=== PATIENT | female | born 1990 | race Caucasian/White ===

== ENCOUNTER → 2021-01-13 10:22 | Outpatient (BNV) | payer MEDICAID, SELFPAY | PROVIDERS: PCP Nurse Practitioner Family; Visit Provider Internal Medicine Medical Oncology | DX: D69.3 Immune thrombocytopenic purpura (principal) | CPT/HCPCS: 99213 ==

== ENCOUNTER → 2021-03-31 13:52 | Outpatient (BNVA) | payer MEDICAID, SELFPAY | PROVIDERS: Visit Provider Advanced Practice Midwife ==

== ENCOUNTER → 2021-04-16 11:27 | Outpatient (BNVA) | payer MEDICAID, SELFPAY | PROVIDERS: Visit Provider Advanced Practice Midwife | DX: Z01.419 Encounter for gynecological examination (general) (routine) without abnormal findings (principal); Z30.09 Encounter for other general counseling and advice on contraception; G43.909 Migraine, unspecified, not intractable, without status migrainosus; D69.3 Immune thrombocytopenic purpura | CPT/HCPCS: 81025 ==

== ENCOUNTER → 2021-10-23 08:54 | Outpatient (BNVA) | payer MEDICAID, SELFPAY | PROVIDERS: Visit Provider Advanced Practice Midwife | DX: Z30.09 Encounter for other general counseling and advice on contraception (principal) | CPT/HCPCS: 81025; 99212 ==

== ENCOUNTER → 2022-01-05 13:08 | Outpatient (BNVA) | payer MEDICAID, SELFPAY | PROVIDERS: Visit Provider Advanced Practice Midwife ==

== ENCOUNTER → 2022-02-09 11:41 | Outpatient (BNVA) | payer MEDICAID, SELFPAY | PROVIDERS: Visit Provider Advanced Practice Midwife | DX: N92.6 Irregular menstruation, unspecified (principal); A04.8 Other specified bacterial intestinal infections; D69.3 Immune thrombocytopenic purpura | CPT/HCPCS: 81025; 99212 ==

== ENCOUNTER 2022-10-27 13:38 | Emergency (ER) | payer MEDICAID, SELFPAY ==
--- NOTE | ~2022-10-27 | US_ITS ---
EXAMINATION: US PELVIS CLINICAL INFORMATION: Pelvic pain. Rule out torsion. Findings suspicious for left-sided pelvic congestion syndrome on CT abdomen pelvis 10/27/2022. Right lower quadrant pain. COMPARISON: Degenerative and pelvis 10/27/2022. Pelvic ultrasound 10/15/2014. TECHNIQUE: Ultrasound of the pelvis is performed using both transabdominal and transvaginal transducers along with Doppler. Transvaginal imaging is performed due to inadequate visualization transabdominally. FINDINGS: Uterus: The uterus measures 8.8 cm x 4.8 cm x 4.1 and is anteverted and configuration. The endometrial echo complex measures 6 mm in width. No endometrial cavity fluid collections noted. The right ovary measures 2.7 cm x 1.3 cm x 2.3 cm for an estimated volume of 4.2 cm. Several scattered physiologic subcentimeter anechoic cysts are noted within the right ovary. A 4 mm rounded hyperechoic focus is present within the right ovary which may represent a cyst with a small quantity of hemorrhage. Normal low resistive arterial and venous spectral waveforms are noted within the right ovary. A 3.2 cm x 1.9 cm x 2.6 cm unilocular anechoic cyst is present adjacent to the right ovary. The left ovary measures 1.8 cm x 2.8 cm x 2.2 cm for an estimate a volume of 5.8 cm. Normal low resistive arterial and venous waveforms are noted in the left ovary. Single 1.5 cm x 1.7 cm x 1.3 cm rounded anechoic benign-appearing simple cyst is noted within the left ovary. No free intraperitoneal fluid collections noted. Color Doppler interrogation demonstrates multiple ectatic vessels in the left adnexal region corresponding to findings noted on the comparison CT. Normal color appearance of the right ovary. Normal color sonographic appearance of the left ovary. US/US pelvic and transvaginal IMPRESSION: *No evidence of ovarian torsion. *Multiple prominent ectatic vessels in the left adnexal region which could correlate with pelvic congestion syndrome as also suggested on the comparison CT of 10/27/2022. *Single 4 mm hyperechoic focus within the right ovary suspicious for a small hemorrhagic cyst. *Benign-appearing 3.2 cm right paraovarian cyst.
--- NOTE | ~2022-10-27 | CT_ITS ---
EXAMINATION: CT ABDOMEN AND PELVIS WITH CONTRAST CLINICAL INFORMATION: Right lower quadrant abdominal pain COMPARISON: None TECHNIQUE: Multidetector volumetric images were obtained from the superior aspect of the liver through the pubic symphysis following administration 85 mL of Omnipaque 350 intravenous contrast. Sagittal and coronal reformatted images were obtained on the technologist's workstation. Oral contrast: No This CT examination was performed using dose optimization techniques as appropriate, variously including the following: *Automated exposure control *Adjustment of mA and/or kV according to patient size (this includes techniques or standardized protocols for targeted exams where dose is matched to indication/reason for exam; i.e. extremities or head) *Use of iterative reconstruction technique DLP: 488 mGy-cm FINDINGS: LUNG BASES: The visualized lung bases are unremarkable. LIVER, GALLBLADDER, AND BILIARY TREE: The liver is normal in size, shape, and attenuation. No focal hepatic lesion or biliary ductal dilatation is present. The gallbladder is unremarkable with no evidence of radiopaque gallstones, gallbladder wall thickening, or obvious pericholecystic inflammatory changes. PANCREAS: Unremarkable. SPLEEN: Unremarkable. ADRENAL GLANDS: Unremarkable. KIDNEYS AND URETERS: The kidneys are normal in size, shape, and attenuation. No hydronephrosis, hydroureter, or calculi seen. No perinephric stranding. BLADDER: Unremarkable. GASTROINTESTINAL TRACT: The small and large bowel are unremarkable. The appendix is unremarkable. ABDOMINAL WALL: No significant hernia is appreciated. LYMPH NODES: Normal. VASCULAR: Prominent pelvic vessels and left ovarian vein which may be an indicator of pelvic congestion syndrome. PELVIC VISCERA: Left corpus luteum cyst. OSSEOUS STRUCTURES: Unremarkable. CT/CT abdomen pelvis w IV con IMPRESSION: 1. No focal inflammatory process or obstruction. Normal appendix. 2. Prominent pelvic vessels and left ovarian vein which may be an indicator of pelvic congestion syndrome.
[2022-10-27 15:29] VITALS: BP 118/83; PULSE 82; RESP 16; TEMP 36.7; O2SAT 99; BMI 28.7
--- NOTE | 2022-10-27 15:33 | ED_ITS ---
HPI - Abdominal Pain General Chief Complaint: Abdominal Pain Stated Complaint: R Side Pain Cough Related Data Home Medications Medication Instructions Recorded Confirmed acetaminophen 650 mg tablet 650 mg PO Q6H PRN Headache 01/13/21 05/13/22 diphenhydramine HCl 25 mg tablet 25 mg PO BEDTIME PRN Allergy 01/13/21 05/13/22 (Benadryl Allergy) Symptoms cholecalciferol (vitamin D3) 10 10 mcg PO DAILY 04/16/21 05/13/22 mcg (400 unit) capsule Previous Rx's Medication Instructions Recorded norethindrone (contraceptive) 0.35 0.35 mg PO DAILY #84 tabs 05/13/22 mg tablet vitamin with calcium 1 tab PO daily 30 days #30 tabs 09/13/22 no.72-iron 27 mg-folic acid 1 mg tablet ( Vitamins Plus Low Iron) Allergies Allergy/AdvReac Type Severity Reaction Status Date / Time pollen extracts [POLLEN] Allergy Mild UNKNOWN Verified 10/27/22 15:29 pollen Allergy Unknown unknown Uncoded 05/13/22 13:41 [facility] Past Medical History Medical History Anxiety Bipolar disorder Depression Migraine with aura Seasonal allergies Thrombocytopenia Family History Family History Sister Diabetes Asthma Mother Hypertension Hx of stroke associated with blood clotting tendency Father Hx of cancer of lung History of throat cancer Social History Social History Household Members: Spouse and Children Housing: Apartment Are you a primary nurse wound care to a significant other at home: No Do you presently have visiting nurse or other home services: No Alcohol intake: former Patient Tobacco Use Status: Never used Tobacco service: No Current occupational status: unemployed Gender identity: Female Physical Exam ED Vital Signs: Vital Signs - 24 hr 10/27/22 15:29 Temperature 98.0 F Pulse Rate 82 Respiratory Rate 16 Blood Pressure 118/83 Pulse Oximetry 99 Oxygen Delivery Method Room Air BMI result Body Mass Index 28.7 Course Course Course Narrative: RME- Patient is a 32-year-old female presents today with having generalized malaise weakness nausea vomiting diarrhea ongoing for 3 days. Coughing feeling weak diarrhea headaches nobody sick at home. Patient is vaccinated for COVID. Discharge Plan Discharge Prescriptions: No Action Vitamin Plus Low Iron 27 mg iron- 1 mg tablet 1 tab PO daily 30 Days Qty: 30 11RF acetaminophen 650 mg Tablet 650 mg PO Q6H PRN (Reason: Headache) diphenhydramine HCl [Benadryl Allergy] 25 mg Tablet 25 mg PO BEDTIME PRN (Reason: Allergy Symptoms) cholecalciferol (vitamin D3) 10 mcg (400 unit) capsule 10 mcg PO DAILY norethindrone (contraceptive) 0.35 mg tablet 0.35 mg PO DAILY Qty: 84 4RF
[2022-10-27 15:57] LABS: MANUAL DIFF FLAG NO
[2022-10-27 16:00] LABS: Basophils Percent Auto 0.3 % (0-2); Eosinophils Absolute Auto 0.2 X10*3/uL (0.0-0.4); Eosinophils Percent Auto 2.7 % (0-4); Hematocrit 40.6 % (37.0-47.0); Hemoglobin 14.1 g/dl (12.0-16.0); Imm Gran Abs Auto 0.01 X10*3/uL (0.00-0.03); Imm Gran Pct Auto 0.2 % (0.0-0.4); Lymphocytes Absolute Auto 1.6 X10*3/uL (1.2-4.9); Lymphocytes Percent Auto 24.6 % (20-40); Mean Corpuscular HGB Conc 34.7 g/dl (31.0-35.0); Mean Corpuscular Volume 86.4 fL (80.0-98.0); Mean Platelet Volume 11.6 fL (9.4-12.3); Monocytes Absolute Auto 0.6 X10*3/uL (0.1-1.2); Monocytes Percent Auto 8.5 % (2-11); Neutrophils Absolute Auto 4.2 x10*3/uL (2.0-8.3); Neutrophils Percent Auto 63.7 % (45-73); Platelet Count 149 X10*3/uL (160-400); Red Cell Distribution Width 11.7 % (11.0-16.0); White Blood Count 6.6 X10*3/uL (4.8-10.8)
[2022-10-27 16:16] LABS: Alanine Aminotransferase 17 U/L (0-31); Albumin Level 4.2 g/dL (3.5-5.0); Alkaline Phosphatase 88 U/L (39-117); Anion Gap 10 (12-20); Aspartate Amino Transferase 18 U/L (5-31); Bilirubin Direct 0.4 mg/dL (0.0-0.5); Bilirubin Total 1.2 mg/dL (0.0-1.0); Blood Urea Nitrogen 6 mg/dL (9-16); Calcium 8.7 mg/dL (8.4-10.2); Carbon Dioxide 26 mmol/L (22-29); Chloride 107 mmol/L (96-108); Estimated Glomerular Filt Rate > 60; Glucose Random 84 mg/dL (60-115); Lipase 18 U/L (8-78); Potassium 3.9 mmol/L (3.3-5.1); Sodium 139 mmol/L (135-145); Total Protein 6.5 g/dL (6.5-8.0)
[2022-10-27 16:29] LABS: HCG Quantitative < 2 mIU/mL
[2022-10-27 18:44] LABS: Appearance Urine Clear; Color Urine Yellow; Glucose Urine UA Negative (Negative); Leukocyte Esterase Urine Trace (Negative); Nitrite Urine Negative (Negative); PH 6.5 (5.0-9.0); Specific Gravity - Urine 1.015 (1.005-1.025); UMIC TRIGGER UACC YES; Urine Blood Negative (Negative); Urine Ketones Trace mg/dL (Negative); Urine Protein Negative (Neg-Trace)
[2022-10-27 18:47] LABS: Bacteria Urine None Seen (None Seen); Hyaline Casts Urine 0-2 /LPF (0-2); Squamous Epithelial Cell Urine 0-2 /HPF (0-2); WBC Urine 0-5 /HPF (0-5)
[2022-10-27 19:27] LABS: Influenza A PCR NEGATIVE (Negative); Influenza B PCR NEGATIVE (Negative); Resp Syncy Virus RNA Qual PCR NEGATIVE (Negative); SARS COV2 PCR INHOUSE NEGATIVE (Negative)
[2022-10-27] MEDS: 0.9 % Sodium Chloride 1,000 ML 999 ML IV (21:28)
[2022-10-27 21:31] VITALS: BP 130/79; PULSE 90; RESP 18; TEMP 37.1; O2SAT 99
--- NOTE | 2022-10-27 21:35 | ED.ABDPAIN ---
HPI - Abdominal Pain General Chief Complaint: Abdominal Pain Stated Complaint: R Side Pain Cough Time Seen by Provider: 10/27/22 21:23 Source: patient Mode of arrival: ambulatory Limitations: no limitations History of Present Illness HPI narrative: 32-year-old female came in for evaluation of abdominal pain. Patient is complaining of right-sided abdominal pain started since this morning as a sharp pain localized to the right lower quadrant area described as intermittent moderate in severity 5/10 comes and goes, pain is not radiating, nothing aggravated pain, nothing relieves the pain, no associated dysuria or frequency urination. Patient started yesterday with coughing she might have pulled a muscle. No past medical or surgical abdominal history. Normal bowel movement, no recent loss of weight, no dysuria, no frequency urination, no hematuria, no history of kidney stones. Related Data Home Medications Medication Instructions Recorded Confirmed acetaminophen 650 mg tablet 650 mg PO Q6H PRN Headache 01/13/21 05/13/22 diphenhydramine HCl 25 mg tablet 25 mg PO BEDTIME PRN Allergy 01/13/21 05/13/22 (Benadryl Allergy) Symptoms cholecalciferol (vitamin D3) 10 10 mcg PO DAILY 04/16/21 05/13/22 mcg (400 unit) capsule Previous Rx's Medication Instructions Recorded norethindrone (contraceptive) 0.35 0.35 mg PO DAILY #84 tabs 05/13/22 mg tablet vitamin with calcium 1 tab PO daily 30 days #30 tabs 09/13/22 no.72-iron 27 mg-folic acid 1 mg tablet ( Vitamins Plus Low Iron) Allergies Allergy/AdvReac Type Severity Reaction Status Date / Time pollen extracts [POLLEN] Allergy Mild UNKNOWN Verified 10/27/22 15:29 pollen Allergy Unknown unknown Uncoded 05/13/22 13:41 Review of Systems Review of Systems All other systems are reviewed and are negative Constitutional: Reports as per HPI and Reports no additional constitutional complaints Eyes: Reports as per HPI and Reports no additional eye complaints Reports system reviewed and no additional complaints, except as documented Cardiovascular: Reports as per HPI and Reports no additional cardiovascular complaints Respiratory: Reports as per HPI and Reports no additional respiratory complaints Gastrointestinal: Reports as per HPI and Reports no additional gastrointestinal complaints Genitourinary: Reports no additional female genitourinary complaints Musculoskeletal: Reports no additional musculoskeletal complaints Skin/Breast: Reports system reviewed and no additional complaints, except as docu Psychiatric: Reports no additional psychiatric complaints Endocrine: Reports no additional endocrine complaints Hematologic/Lymphatic: Reports no additional hematologic/lymphatic complaints Allergic/Immunologic: Reports no additional allergic/immunologic complaints Reports system reviewed and no additional complaints, except as documented and Reports Abnormal speech present [facility] Past Medical History Medical History Anxiety Bipolar disorder Depression Migraine with aura Seasonal allergies Thrombocytopenia Family History Family History Sister Diabetes Asthma Mother Hypertension Hx of stroke associated with blood clotting tendency Father Hx of cancer of lung History of throat cancer Social History Social History Household Members: Spouse and Children Housing: Apartment Are you a primary career services director to a significant other at home: No Do you presently have visiting nurse or other home services: No Alcohol intake: former Patient Tobacco Use Status: Never used Tobacco Advance Directives: No Advance Directives Information Provided: Yes service: No Current occupational status: unemployed Gender identity: Female Physical Exam ED Vital Signs: Vital Signs - 24 hr 10/27/22 15:29 10/27/22 21:31 10/27/22 22:00 Temperature 98.0 F 98.8 F 98.4 F Pulse Rate 82 90 81 Respiratory Rate 16 18 16 Blood Pressure 118/83 130/79 120/70 Pulse Oximetry 99 99 100 Oxygen Delivery Method Room Air Room Air Room Air BMI result Body Mass Index 28.7 Vital signs have been reviewed as appeared to be correct. Blood pressure normal. Heart rate normal. Respiration rate normal. Temperature normal. Oxygen saturation normal. Appearance: Alert. Oriented X3. No acute distress. Head: Normal external exam. Normocephalic. Atraumatic. No Henderson signs noted. No raccoon eyes noted Eyes: PERRLA. EOMI. Conjunctiva and sclera normal. Eyelids normal. ENT: TM's Normal. Pharynx normal. Uvula midline. Moist mucous membranes. No trismus noted. No drooling noted. No muffled voice noted. Neck: Normal inspection. Neck supple. FROM. No adenopathy. Thyroid Normal. No meningeal signs. No neck mass noted. CVS: Normal heart rate and rhythm. Heart sound normal. No murmurs noted. Pulses normal throughout. Respiratory: No respiratory distress. Painless inspiration. Breath sounds normal. No wheezes/rales/rhonchi noted. Chest nontender. No accessory muscle usage noted or decreased air movement noted. Abdomen: Soft and nontender. Bowel sounds normal in all 4 quadrants. No distention noted. No organomegaly noted. No visible injury noted. Pelvic exam: Deferred for the ultrasound. Back: No CVA tenderness. Full range of motion noted. Skin: Skin warm and dry. Normal skin color. Normal skin turgor. No rashes/lesions/lacerations noted. Extremities: No lower extremity edema. Extremities exhibit normal range of motion. Extremities nontender. Neuro: Oriented X 3. Cranial nerve exam: II-XII are grossly intact No motor deficit. No sensory deficit. Reflexes normal. Course Course Course Narrative: 32-year-old female presented with right lower abdominal pain, otherwise patient is asymptomatic, physical exam and CT/ultrasound revealed normal appearing appendix with normal WBCs count making appendicitis is unfavorable, ultrasound is showing nonspecific left side pelvic congestion patient has no left abdominal or pelvic pain, the ultrasound also revealed 4 mm small hemorrhagic cyst. My impression patient has been having right lower abdominal pain probably secondary to coughing and pulled muscle however will have the patient follow-up with Dr. Isaacs. Patient was instructed to take Tylenol for pain and wrist for 2 days and return if worsening of her symptoms. Medical Decision Making Medical Decision Making Differential Diagnoses: Differential diagnosis (Right lower abdominal muscle pain/acute appendicitis/ovarian cyst/ovarian torsion.) Lab Attestation: I reviewed the patient's lab results. Discussion of test interpretation with radiology: Discussion of test interpretation with radiology Medications Administered Discontinued Medications Generic Name Dose Route Start Last Admin Trade Name Freq PRN Reason Stop Dose Admin Sodium Chloride 1,000 mls @ 999 mls/hr 10/27/22 15:45 10/27/22 23:45 Ns IV 10/27/22 16:45 Infused .Q1H1M SAM Infusion Iohexol 100 ml 10/27/22 21:48 10/27/22 21:49 Iohexol 350 Mg/Ml 100 Ml Infus..Btl IV 10/27/22 21:49 85 ml ONCE ONE Administration Discharge Plan Discharge Clinical Impression: Abdominal pain, Pelvic congestion syndrome, Ovarian cyst Patient Disposition: Home, Self-Care Instructions: Ovarian Cyst (ED) Additional Instructions: Take ibuprofen 200 mg tablets of [id number] medication every 6 hours if needed for pain. Prescriptions: No Action Vitamin Plus Low Iron 27 mg iron- 1 mg tablet 1 tab PO daily 30 Days Qty: 30 11RF acetaminophen 650 mg Tablet 650 mg PO Q6H PRN (Reason: Headache) diphenhydramine HCl [Benadryl Allergy] 25 mg Tablet 25 mg PO BEDTIME PRN (Reason: Allergy Symptoms) cholecalciferol (vitamin D3) 10 mcg (400 unit) capsule 10 mcg PO DAILY norethindrone (contraceptive) 0.35 mg tablet 0.35 mg PO DAILY Qty: 84 4RF Referrals: [facility] [Primary Care Provider] - Deric Isaacs MD [Physician] - Stand Alone Forms: Work/School Release
[2022-10-27] MEDS: iohexoL 350 MG/ML 100 ML INFUS..BTL IV (21:49)
[2022-10-27 21:59] LABS: UPreg QC Valid YES; Urine Pregnancy NEGATIVE (NEGATIVE)
[2022-10-27 22:00] VITALS: BP 120/70; PULSE 81; RESP 16; TEMP 36.9; O2SAT 100
--- NOTE | 2022-10-27 23:45 | PC.NURSE ---
pt reporting to this rn headache at this time. requesting tylenol. Dr Chino made aware of this request. awaiting orders at this time
[2022-10-28 00:58] VITALS: BP 115/75; PULSE 79; RESP 16; TEMP 36.5; O2SAT 99
[2022-10-28] MEDS: Acetaminophen 325 MG TABLET 650 MG PO (01:12)
== END 2022-10-28 01:18 | disposition home or self-care (01) ==
PROVIDERS: Emergency Medicine Emergency Medical Services; Emergency Provider Emergency Medicine
DX: N94.89 Other specified conditions associated with female genital organs and menstrual cycle (principal); N83.209 Unspecified ovarian cyst, unspecified side; R10.33 Periumbilical pain; R05.9 Cough, unspecified; Z79.899 Other long term (current) drug therapy; Z20.822 Contact with and (suspected) exposure to COVID-19
CPT/HCPCS: 0241U; 36415; 74177; 76830; 76856; 80048; 80076; 81001; 81025; 83690; 84702; 85025; 93975; 96360; 96361; 99284; 99285; Q9967

== ENCOUNTER 2022-11-03 08:58 | Outpatient (REF) | payer MEDICAID, SELFPAY | END 2022-11-03 08:59 | disposition home or self-care (01) | LOC: HO.LNP 08:58 | PROVIDERS: Visit Provider Obstetrics & Gynecology | DX: Q50.5 Embryonic cyst of broad ligament (principal); N94.89 Other specified conditions associated with female genital organs and menstrual cycle; R31.29 Other microscopic hematuria; R10.9 Unspecified abdominal pain | CPT/HCPCS: 87086; 99212 ==

== ENCOUNTER → 2022-11-23 12:26 | Outpatient (BNVA) | payer MEDICAID, SELFPAY | PROVIDERS: Visit Provider Obstetrics & Gynecology | DX: Z13.89 Encounter for screening for other disorder (principal) ==

== ENCOUNTER 2022-12-01 16:54 | Outpatient (RCR) | payer MEDICAID, SELFPAY | END 2022-12-21 14:10 | disposition home or self-care (01) | LOC: HO.PT 16:54 | PROVIDERS: PCP Registered Nurse; Visit Provider Registered Nurse | DX: M54.50 Low back pain, unspecified (principal) | CPT/HCPCS: 97110; 97161 ==

== ENCOUNTER 2023-05-06 14:28 | Outpatient (REF) | payer MEDICAID, SELFPAY ==
--- NOTE | ~2023-05-06 | US_ITS ---
EXAMINATION: US OBSTETRICAL ULTRASOUND CLINICAL INFORMATION: Check size and dates. Unsure LMP. COMPARISON: None available. LMP: Unknown. Gestational age by maternal dates is . Estimated date of delivery by maternal dates is . TECHNIQUE: Transabdominal and transvaginal first trimester OB ultrasound FINDINGS: There is a single intrauterine gestational sac with visible yolk sac, embryo/fetus, and cardiac activity. There is no significant subchorionic hemorrhage or hematoma. HR: 96 beats per minute. CRL (crown rump length): 0.29 cm (6 weeks 0 days +/- 4 days). VANESSA (estimated date of delivery): 12/30/2023 +/- 4 days. MATERNAL ADNEXA: The right maternal ovary measures 2.6 x 2.2 x 2 cm. There is a 1.8 x 1.6 x 1.6 cm complex right ovarian cyst probably representing a corpus luteum. There is a 3.4 x 2.1 x 2.3 cm exophytic simple right adnexal or paraovarian cyst. The left maternal ovary measures 2.3 x 1.3 x 1.3 cm. No maternal pelvic ascites. US/US OB <= 14 weeks fetus IMPRESSION: 1. Single intrauterine gestation with ultrasound gestational age of 6 weeks 0 days +/- 4 days. 2. Estimated date of delivery is 12/30/2023 +/- 4 days. 3. 3.4 x 2.1 x 2.3 cm right adnexal or paraovarian cyst.
== END 2023-05-06 14:29 | disposition home or self-care (01) ==
LOC: HO.US 14:28
PROVIDERS: PCP Registered Nurse; Visit Provider Advanced Practice Midwife
DX: Z34.91 Encounter for supervision of normal pregnancy, unspecified, first trimester (principal); Z3A.01 Less than 8 weeks gestation of pregnancy
CPT/HCPCS: 76801

== ENCOUNTER 2024-02-03 14:22 | Outpatient (REF) | payer MEDICAID, SELFPAY ==
[2024-02-03 16:00] LABS: Appearance Urine Clear; Color Urine Yellow; Glucose Urine UA Negative (Negative); Leukocyte Esterase Urine Small (1+) (Negative); Nitrite Urine Negative (Negative); Specific Gravity - Urine 1.025 (1.005-1.025); UMIC TRIGGER UA YES; Urine Blood Trace (Negative); Urine Ketones Negative (Negative); Urine Protein Negative (Neg-Trace)
[2024-02-03 16:04] LABS: Bacteria Urine Trace (None Seen); Hyaline Casts Urine 0-2 /LPF (0-2); RBC Urine 0-2 /HPF (0-2)
== END 2024-02-03 14:23 | disposition home or self-care (01) ==
LOC: HO.HHCL 14:22
PROVIDERS: Visit Provider Student in an Organized Health Care Education/Training Program
DX: N39.0 Urinary tract infection, site not specified (principal); R31.9 Hematuria, unspecified
CPT/HCPCS: 81001

== ENCOUNTER 2024-02-16 11:58 | Outpatient (REF) | payer MEDICAID, SELFPAY ==
[2024-02-16 13:25] LABS: Hematocrit 38.8 % (37.0-47.0); Hemoglobin 13.6 g/dl (12.0-16.0); Mean Corpuscular HGB Conc 35.1 g/dl (31.0-35.0); Mean Corpuscular Hemoglobin 31.4 pg (27.0-33.0); Mean Corpuscular Volume 89.6 fL (80.0-98.0); Mean Platelet Volume 12.8 fL (9.4-12.3); Platelet Count 150 X10*3/uL (160-400); Red Blood Count 4.33 X10*6/uL (4.20-5.50); Red Cell Distribution Width 11.5 % (11.0-16.0); White Blood Count 7.8 X10*3/uL (4.8-10.8)
[2024-02-16 13:59] LABS: Estimated Average Glucose 94 mg/dL; Hemoglobin A1c % 4.9 % (<6.0)
[2024-02-16 14:02] LABS: Alanine Aminotransferase 11 U/L (0-31); Alkaline Phosphatase 72 U/L (39-117); Anion Gap 13 (12-20); Aspartate Amino Transferase 16 U/L (5-31); Bilirubin Direct 0.5 mg/dL (0.0-0.5); Bilirubin Total 1.4 mg/dL (0.0-1.0); Blood Urea Nitrogen 12 mg/dL (9-16); Calcium 9.1 mg/dL (8.4-10.2); Carbon Dioxide 25 mmol/L (22-29); Chloride 107 mmol/L (96-108); Cholesterol 156 mg/dL (<200); Estimated Glomerular Filt Rate > 60; Glucose Random 79 mg/dL (60-115); HDL Cholesterol 45 mg/dL (>40); LDL Cholesterol Calculated 81 mg/dL (<100); Potassium 3.8 mmol/L (3.3-5.1); Sodium 141 mmol/L (135-145); Total Protein 6.7 g/dL (6.5-8.0); Triglycerides 154 mg/dL (<150)
[2024-02-16 14:08] LABS: Free T4 (Free Thyroxine) 0.91 ng/dL (0.71-1.85); Thyroid Stimulating Hormone 1.91 uIU/mL (0.32-4.0); Vitamin D 25-OH Total 38.2 ng/mL (>30)
[2024-02-16 15:41] LABS: CT PCR NOT DETECTED (Not Detect.); NG PCR NOT DETECTED (Not Detect.)
[2024-02-17 04:13] LABS: Hepatitis A Antibody IgG Nonreactive (Nonreactive); ~Hepatitis A Antibody IgG 0.34 S/CO (0.00-0.99)
[2024-02-17 04:27] LABS: HBS Num1 24.04 mIU/mL (0-7.99); HBsAGNum1 0.37 S/CO (0.00-0.99); HIV AB/AG Nonreactive (Nonreactive); HIV Num 1 0.31 S/CO (0.00-0.99); Hepatitis B Surface Antigen Negative (Negative); ~HepC Num1 0.13 S/CO (0.00-0.79); ~Hepatitis B Surface Antibody REACTIVE (Nonreactive); ~Hepatitis C Antibody Nonreactive (Nonreactive)
[2024-02-20 13:14] LABS: RPR Rapid Plasma Reagin NON-REACTIVE (NON-REACTIVE)
== END 2024-02-16 11:59 | disposition home or self-care (01) ==
LOC: HO.HHCL 11:58
PROVIDERS: Visit Provider Family Medicine
DX: Z00.00 Encounter for general adult medical examination without abnormal findings (principal); Z11.4 Encounter for screening for human immunodeficiency virus [HIV]; D69.6 Thrombocytopenia, unspecified
CPT/HCPCS: 0353U; 36415; 80048; 80061; 80076; 82306; 83036; 84439; 84443; 85027; 86592; 86706; 86708; 86803; 87340; 87389

== ENCOUNTER 2024-09-05 19:18 | Emergency (ER) | payer MEDICAID, SELFPAY ==
--- NOTE | ~2024-09-05 | US_ITS ---
EXAMINATION: US TRIPLEX LOWER EXTREMITY, BILATERAL CLINICAL INFORMATION: Bilateral lower extremity pain. COMPARISON: None available. TECHNIQUE: Color-flow triplex imaging with spectral analysis and compression Doppler were performed on the bilateral lower extremities. FINDINGS: Respiratory variation, normal compression and augmented flow are noted throughout the bilateral lower extremities. The visualized common femoral vein, superficial femoral vein, profunda femoral vein, popliteal vein and midcalf peroneal and posterior tibial venous segments show no evidence of deep venous thrombosis bilaterally. There is no Tyler's cyst. US/US venous duplex LE BI IMPRESSION: No evidence of deep venous thrombosis involving the bilateral lower extremities. Electronically signed by: Santhosh Portillo MD 09/05/2024 10:40 PM EDT
[2024-09-05 19:28] VITALS: BP 124/83; PULSE 90; RESP 19; TEMP 36.6; O2SAT 98; BMI 29.1
--- NOTE | 2024-09-05 19:31 | ED.GENADULT ---
HPI - General Adult General Chief complaint: Extremity Injury, Lower Stated complaint: Bilat leg pain Time Seen by Provider: 09/05/24 23:28 History of Present Illness ED Provider: Mehreen JUNG narrative: The patient is a 34-year-old woman who says that she has had intermittent pains in her legs over the last 3 weeks. She feels these pains primarily in her thighs and in the region of her knees. The pains are intermittent and are not clearly related to any particular activities. There is no associated back pain. No associated bowel or bladder symptoms. No associated weakness in the legs or feet. The patient has a history of thrombocytopenia. 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 She contacted Dr. Hurt recently who was concerned that the patient's mother has a history of DVTs and advised the patient to come to the emergency room for evaluation. No fever, sweats, or chills. No injuries. Related Data Home Medications ?Medication ?Instructions ?Recorded ?Confirmed acetaminophen 650 mg tablet 650 mg PO Q6H PRN Headache 01/13/21 03/15/24 Allergies Allergy/AdvReac Type Severity Reaction Status Date / Time pollen extracts [POLLEN] Allergy Mild UNKNOWN Verified 09/05/24 19:31 Review of Systems Review of Systems: Yes all other systems are reviewed and are negative PMF Past Medical History Medical History Anxiety Bipolar disorder Depression Migraine with aura Seasonal allergies Thrombocytopenia Family History Family History Sister Diabetes Asthma Mother Hypertension Hx of stroke associated with blood clotting tendency Father Hx of cancer of lung History of throat cancer Social History Social History Household Members: Spouse and Children Housing: Apartment Are you a primary associate director career services to a significant other at home: No Do you presently have visiting nurse or other home services: No Alcohol intake: former Patient Tobacco Use Status: Never used Tobacco Smoked in Last 30 Days: No Use of substances other than those prescribed or required for medical reasons: No Advance Directives: No Advance Directives Information Provided: No service: No Current occupational status: unemployed Gender identity: Female Physical Exam ED Vital Signs: Vital Signs - 24 hr 09/05/24 19:28 09/05/24 22:03 09/05/24 23:51 Temperature 98 F 98.6 F 98.6 F Pulse Rate 90 73 73 Respiratory Rate 19 16 16 Blood Pressure 124/83 130/77 130/77 Pulse Oximetry 98 98 98 Oxygen Delivery Method Room Air Room Air Room Air BMI result Body Mass Index 29.1 Const Other: The patient has the appearance of an ordinarily healthy 34-year-old. She does not appear in distress or ill. HENMT Head: Yes normal to inspection Face and sinus: Yes normal facial exam Mouth: Normal oral and palatal mucosa present and moist mucous membranes Eyes General: appearance normal, both eyes and all related structures Neck Neck: Yes full ROM Resp Effort & Inspection: normal respiratory effort Auscultation: clear to auscultation bilaterally Cardio Rate: regular rate Rhythm: regular rhythm Heart sounds: S1 normal heart sound present and S2 normal heart sound present GI Other: abdomen is soft and nontender Skin Other: skin is dry and unremarkable Neuro Other: the patient is awake and alert with normal mental status. Cranial nerves are grossly intact. She has normal strength in her legs and moves them easily. She reports some diminished sensation in both feet. She has 2+ reflexes at the knees and ankles. Toes go down bilaterally. She walks easily and normally. Extrem Other: No apparent abnormality to either leg. She seems to have no soft tissue swelling of the thighs or the calves. She seems to move her legs easily and appropriately. No edema. No asymmetry. No erythema. Course Course Course Narrative: This is a Rapid Medical Examination (RME) performed by Brandt You PA-C in triage. Full HPI, ROS, assessment and treatment plan per primary provider in the Main ED. 34 yo female hx of thrombocytopenia here for eval of bilateral posterior knee pain radiating up and down LEs (now L>R). mom w/ history of multiple VTEs and strokes. called dr. hurt who advised she come to ED for lab work and US. no personal hx of VTE. no thinners. Plan: labs, venous duplex Medical Decision Making Medical Decision Making MDM Narrative: The patient is a 34-year-old female who has been having problems with pain in the front of both of her legs that seems to be maximal around the knees. There has been no trauma. She has had no fevers, sweats, chills. She has not had any significant back pain. She has no bowel or bladder complaints. Her physical exam shows brisk reflexes at the knees and ankles, downgoing toes, easy use of the knees and ankles. Normal gait. Overall the patient looks quite well. Bilateral lower extremity ultrasounds are negative. basic labs including a CBC and a comprehensive metabolic panel show a minimally abnormal thrombocytopenia. No other significant result. Overall the patient looks quite well. I do not have a good explanation for this bilaterally anterior leg pain. I do not think this represents any kind of neurological emergency. She looks quite well. I think she may be discharged to follow-up with her regular providers. Lab Data 09/05/24 19:40 09/05/24 19:40 Labs: Lab Results 09/05/24 Range/Units 19:40 WBC 7.9 (4.8-10.8) X10*3/uL RBC 4.83 (4.20-5.50) X10*6/uL Hgb 14.8 (12.0-16.0) g/dl Hct 42.2 (37.0-47.0) % MCV 87.4 (80.0-98.0) fL MCH 30.6 (27.0-33.0) pg MCHC 35.1 H (31.0-35.0) g/dl RDW 11.5 (11.0-16.0) % Plt Count 155 L (160-400) X10*3/uL MPV 12.3 (9.4-12.3) fL Immature Gran % (Auto) 0.3 (0.0-0.4) % Neut % (Auto) 63.9 (45-73) % Lymph % (Auto) 28.0 (20-40) % [place] % (Auto) 6.1 (2-11) % Eos % (Auto) 1.3 (0-4) % Baso % (Auto) 0.4 (0-2) % Lymph # (Auto) 2.2 (1.2-4.9) X10*3/uL [place] # (Auto) 0.5 (0.1-1.2) X10*3/uL Eos # (Auto) 0.1 (0.0-0.4) X10*3/uL Baso # (Auto) 0.0 (0.0-0.2) X10*3/uL Abs Immat Gran (auto) 0.02 (0.00-0.03) X10*3/uL Absolute Neuts (auto) 5.0 (2.0-8.3) x10*3/uL Absolute Nucleated RBC 0.000 (0.0-0.012) X10*3/uL Nucleated RBC % (auto) 0.0 (0.0-0.2) /100WBC PT 12.3 (10.9-12.4) SEC INR 1.1 (0.9-1.1) Sodium 143 (135-145) mmol/L Potassium 3.7 (3.3-5.1) mmol/L Chloride 111 H (96-108) mmol/L Carbon Dioxide 22 (22-29) mmol/L Anion Gap 14 (12-20) BUN 8 L (9-16) mg/dL Creatinine 0.66 (0.5-1.4) mg/dL Estim Creat Clear Calc 107.4 Estimated GFR > 60 Random Glucose 87 (60-115) mg/dL Calcium 9.9 D (8.4-10.2) mg/dL Magnesium 2.0 (1.6-2.6) mg/dL Total Bilirubin 0.6 (0.0-1.0) mg/dL AST 15 (5-31) U/L ALT 13 (0-31) U/L Alkaline Phosphatase 88 (39-117) U/L Total Protein 7.8 (6.5-8.0) g/dL Albumin 4.7 (3.5-5.0) g/dL Discharge Plan Discharge Clinical Impression: Bilateral leg pain Patient Disposition: Home, Self-Care Additional Instructions: Your testing in the emergency room today seems reassuring. There is no sign of a blood clot in your legs. Your other labs are unremarkable. Your physical exam is also reassuring. You may continue to use acetaminophen (Tylenol) as needed for pain. I think that occasionally using ibuprofen would be reasonable as well. Your platelet count is nearly normal today. Please follow up with your regular doctor to discuss these pains further. Return to the emergency room if significantly worse. Prescriptions: No Action acetaminophen 650 mg Tablet 650 mg PO Q6H PRN (Reason: Headache) Referrals: Reva Castillo DO [Physician] - (Bilateral anterior leg pain) Interventions: ED Discharge Assessment Last Done: 09/05/24 23:51 Discharge Date/Time: 09/05/24 23:51 Print Language: Angolan
[2024-09-05 19:43] LABS: MANUAL DIFF FLAG NO
[2024-09-05 19:52] LABS: Basophils Percent Auto 0.4 % (0-2); Eosinophils Absolute Auto 0.1 X10*3/uL (0.0-0.4); Eosinophils Percent Auto 1.3 % (0-4); Hematocrit 42.2 % (37.0-47.0); Hemoglobin 14.8 g/dl (12.0-16.0); Imm Gran Abs Auto 0.02 X10*3/uL (0.00-0.03); Imm Gran Pct Auto 0.3 % (0.0-0.4); Lymphocytes Absolute Auto 2.2 X10*3/uL (1.2-4.9); Mean Corpuscular HGB Conc 35.1 g/dl (31.0-35.0); Mean Corpuscular Hemoglobin 30.6 pg (27.0-33.0); Mean Corpuscular Volume 87.4 fL (80.0-98.0); Mean Platelet Volume 12.3 fL (9.4-12.3); Monocytes Absolute Auto 0.5 X10*3/uL (0.1-1.2); Monocytes Percent Auto 6.1 % (2-11); Neutrophils Percent Auto 63.9 % (45-73); Platelet Count 155 X10*3/uL (160-400); Red Blood Count 4.83 X10*6/uL (4.20-5.50); Red Cell Distribution Width 11.5 % (11.0-16.0); White Blood Count 7.9 X10*3/uL (4.8-10.8)
[2024-09-05 19:59] LABS: INTERNATIONAL NORM RATIO 1.1 (0.9-1.1); Prothrombin Time 12.3 SEC (10.9-12.4)
[2024-09-05 20:11] LABS: Alanine Aminotransferase 13 U/L (0-31); Albumin Level 4.7 g/dL (3.5-5.0); Alkaline Phosphatase 88 U/L (39-117); Anion Gap 14 (12-20); Aspartate Amino Transferase 15 U/L (5-31); Bilirubin Total 0.6 mg/dL (0.0-1.0); Blood Urea Nitrogen 8 mg/dL (9-16); Calcium 9.9 mg/dL (8.4-10.2); Carbon Dioxide 22 mmol/L (22-29); Chloride 111 mmol/L (96-108); Creatinine Clr Calc Pharmacy 107.4; Estimated Glomerular Filt Rate > 60; Glucose Random 87 mg/dL (60-115); Potassium 3.7 mmol/L (3.3-5.1); Sodium 143 mmol/L (135-145); Total Protein 7.8 g/dL (6.5-8.0)
[2024-09-05 22:03] VITALS: BP 130/77; PULSE 73; RESP 16; TEMP 37; O2SAT 98
--- NOTE | 2024-09-05 22:07 | PC.NURSE ---
pt ambulatory with steady gait from wr to ed20 reporting bilat leg pain onset x 3 weeks ago. denies recent travel/injury. hx itp. +pedal pulses no redness/swelling noted. reports 8/10 pain. awaiting eval by ed provider. sig other at bedside. call yañez within reach.
[2024-09-05 23:51] VITALS: BP 130/77; PULSE 73; RESP 16; TEMP 37; O2SAT 98
== END 2024-09-05 23:51 | disposition home or self-care (01) ==
PROVIDERS: Physician Assistant Medical; Emergency Provider Emergency Medicine
DX: M79.605 Pain in left leg (principal); M79.604 Pain in right leg
CPT/HCPCS: 36415; 80053; 83735; 85025; 85610; 93970; 99284

== ENCOUNTER 2024-09-14 16:22 | Outpatient (REF) | payer MEDICAID, SELFPAY | END 2024-09-14 16:23 | disposition home or self-care (01) | LOC: HO.LAB 16:22 | PROVIDERS: PCP Family Medicine; Visit Provider Family Medicine | DX: M79.604 Pain in right leg (principal); M79.605 Pain in left leg | CPT/HCPCS: 72100; 73564 ==

== ENCOUNTER 2024-10-01 16:49 | Emergency (ER) | payer MEDICAID, SELFPAY ==
--- NOTE | ~2024-10-01 | US_ITS ---
EXAMINATION: US TRIPLEX LOWER EXTREMITY, BILATERAL CLINICAL INFORMATION: Pain. COMPARISON: Lower extremities ultrasound 09/05/2024. TECHNIQUE: Color-flow triplex imaging with spectral analysis and compression Doppler were performed on the bilateral lower extremities. FINDINGS: Respiratory variation, normal compression and augmented flow are noted throughout the bilateral lower extremities. The visualized common femoral vein, superficial femoral vein, profunda femoral vein, popliteal vein and midcalf peroneal and posterior tibial venous segments show no evidence of deep venous thrombosis bilaterally. There is no Tyler's cyst. US/US venous duplex LE BI IMPRESSION: No evidence of deep venous thrombosis involving the bilateral lower extremities. Electronically signed by: Kassy Allen MD 10/01/2024 08:37 PM EST
[2024-10-01 17:00] VITALS: BP 103/62; PULSE 80; RESP 18; TEMP 37; O2SAT 98; BMI 25.0
--- NOTE | 2024-10-01 17:01 | ED_ITS ---
HPI - General Adult General Chief complaint: Extremity Injury, Lower Stated complaint: Bilateral Leg pain Source: patient Mode of arrival: ambulatory Limitations: no limitations History of Present Illness ED Provider: Domi Moy PA-C HPI narrative: Patient is a 34 year old assigned female at with a history of chronic ITP, H. pylori, and bilateral lower leg pain presenting to the emergency department today with continued bilateral lower leg pain. Patient states that she has been dealing with bilateral lower leg pain for over a month and her PCP has her scheduled for an EMG soon. Patient denies any dizziness, lightheadedness, abdominal pain, nausea, vomiting, fever, chills, blurry vision, double vision, loss of vision, chest pain, difficulty breathing, shortness of breath, back pain, night sweats, pain with urination, increased urinary frequency, increased urinary urgency, blood in her urine or stool, syncope or a near syncopal episode, recent trauma or falls, bowel incontinence, bladder incontinence, or any other complaints at this time. Onset (ago): month(s) (1) Location: left, right and lower extremity Relieving factors: none Exacerbating factors: none Associated symptoms: denies other symptoms Treatments prior to arrival: none Related Data Home Medications ?Medication ?Instructions ?Recorded ?Confirmed acetaminophen 650 mg tablet 650 mg PO Q6H PRN Headache 01/13/21 09/07/24 Allergies Allergy/AdvReac Type Severity Reaction Status Date / Time pollen extracts [POLLEN] Allergy Mild UNKNOWN Verified 10/01/24 17:02 Review of Systems Constitutional: Constitutional: Reports no additional constitutional complaints, Denies chills, Denies fever(s) and Denies night sweats Eyes: Eyes: Reports no additional eye complaints, Denies blurry vision, Denies change in vision, Denies diplopia, Denies eye discharge, Denies loss of vision and Denies eye pain ENT: Denies dizziness Cardiovascular: Cardiovascular: Reports no additional cardiovascular complaints, Denies chest pain, Denies lightheadedness, Denies Loss of Consciousness and Denies dyspnea Respiratory: Respiratory: Reports no additional respiratory complaints and Denies dyspnea Gastrointestinal: Gastrointestinal: Reports no additional gastrointestinal complaints, Denies abdominal pain, Denies melena, Denies hematochezia, Denies change in bowel habits and Denies change in stool character Genitourinary: Genitourinary: Denies hematuria, Denies urinary frequency, Denies dysuria, Denies urinary incontinence, Denies urinary hesitancy and Denies urinary urgency Musculoskeletal: Musculoskeletal: Reports no additional musculoskeletal complaints, Denies numbness and Denies tingling Comments: bilateral lower extremity pain Neurologic: Denies dizziness, Denies loss of vision, Denies numbness and Denies tingling Psychiatric: Psychiatric: Reports no additional psychiatric complaints Endocrine: Endocrine: Reports no additional endocrine complaints Hematologic/Lymphatic: Hematologic/Lymphatic: Reports no additional hematologic/lymphatic complaints Allergic/Immunologic: Allergic/Immunologic: Reports no additional allergic/immunologic complaints [facility] Past Medical History Attestation statement: The following information was validated with the patient. Source: old records reviewed and nursing notes reviewed Medical History Migraine with aura Bipolar disorder Anxiety Depression Seasonal allergies Thrombocytopenia Family History Family History Sister Diabetes Asthma Mother Hypertension Hx of stroke associated with blood clotting tendency Father Hx of cancer of lung History of throat cancer Social History Social History Household Members: Spouse and Children Housing: Apartment Are you a primary director of career resources to a significant other at home: No Do you presently have visiting nurse or other home services: No Alcohol intake: former Patient Tobacco Use Status: Never used Tobacco Advance Directives: No Advance Directives Information Provided: No Do you have a plan to hurt others: No Plan service: No Current occupational status: unemployed Gender identity: Female Physical Exam ED Vital Signs: BMI result Body Mass Index 25.0 Const General: cooperative, no acute distress, alert and awake Nutritional Appearance: well nourished Orientation/consciousness: patient oriented x3 Limitations: no limitations HENMT Head: Yes normal to inspection and Yes atraumatic Ears: hearing grossly normal bilaterally and external ears normal General nose exam: Normal external nose present, no nasal discharge noted and no epistaxis Face and sinus: Yes normal facial exam, No abrasion and No laceration Mouth: Normal oral and palatal mucosa present, no drooling and no muffled voice Eyes General: appearance normal, both eyes and all related structures Periorbital: periorbital findings normal Eyelids: Yes eyelids normal Conjunctivae: conjunctivae normal Pupils: Equal, round and reactive pupils present EOM: EOMs intact bilaterally Neck Neck: Yes normal visual inspection, Yes full ROM and Yes no lymphadenopathy Chest Chest palpation & inspection: normal inspection of the chest Resp Effort & Inspection: normal respiratory effort and able to speak in complete sentences GI Inspection: Yes normal to inspection Neuro General: patient oriented x3 and moves all extremities Cranial nerves: Yes Equal, round and reactive pupils present Cognition (Neuro): normal cognition Extrem General: Yes normal to inspection, Yes full ROM and Yes capillary refill normal Psych Appearance: grossly normal Mental Status: mental status grossly normal Affect: normal affect Attitude: cooperative Thought process: Normal thought process present Thought content: Normal thought content present Insight: Good insight present (Psych) Course Course Course Narrative: RME performed by Domi Moy PA-C. Patient is a 34 year old assigned female at presenting to the emergency department with bilateral leg pain and right knee lump. Detailed physical exam and review of systems are deferred to the primary montessori teacher. Imaging ordered. Patient placed back in the waiting room pending room availability and results. Medical Decision Making Medical Decision Making MDM Narrative: Patient is a 34 year old assigned female at with a history of chronic ITP, H. pylori, and bilateral lower leg pain presenting to the emergency department today with continued bilateral lower leg pain. Patient's limited physical exam performed in triage was unremarkable. Patient's bilateral lower leg ultrasounds showed no acute process. Patient left the department without completing treatment. Patient left the department before myself or any of the other emergency department clinicians could explain to or review with the patient; physical exam findings, test results, need or lack there of for additional testing, need or lack there of for a procedure to be performed, need or lack there of for hospital admission / transfer, need or lack there of for prescription medication, treatment options, or a treatment plan. Differential Diagnosis Differential Diagnoses: The differential diagnosis associated with the presentation includes DVT Bilateral lower leg pain Neuropathy Admission/Observation Consideration of admission/observation: Escalation of care including admission/observation considered Patient would have been admitted to the hospital had she completed her work up and it had any findings where hospital admission was appropriate, her clinical presentation warranted hospital admission, had myself or any other emergency parts department supervisor had the ability to discuss need or lack there of for hospital admission, and the patient hadn't left the department without completing treatment. Independent Interpretation I performed an independent interpretation of an: Ultrasound Interpretation: My interpretation is in agreement with the radiologist's impression of this imaging study. EXAMINATION: US TRIPLEX LOWER EXTREMITY, BILATERAL CLINICAL INFORMATION: Pain. COMPARISON: Lower extremities ultrasound 09/05/2024. TECHNIQUE: Color-flow triplex imaging with spectral analysis and compression. Doppler were performed on the bilateral lower extremities. FINDINGS: Respiratory variation, normal compression and augmented flow are noted throughout the bilateral lower extremities. The visualized common femoral vein, superficial femoral vein, profunda femoral vein, popliteal vein and midcalf peroneal and posterior tibial venous segments show no evidence of deep venous thrombosis bilaterally. There is no Tyler's cyst. US/US venous duplex LE BI IMPRESSION: No evidence of deep venous thrombosis involving the bilateral lower extremities. Electronically signed by: Kassy Allen MD 10/01/2024 08:37 PM [facility] Dictated By: Kassy Allen Signed By: Electronically signed by Kassy Allen 10/01/242036 Radiology Impression Discussion of test interpretation with radiology: I have reviewed the radiologist's reading. Discharge Plan Discharge Clinical Impression: Bilateral leg pain Patient Disposition: Left W/O Completing Treatment Prescriptions: No Action acetaminophen 650 mg Tablet 650 mg PO Q6H PRN (Reason: Headache) Discharge Date/Time: 10/01/24 22:34
--- NOTE | 2024-10-01 22:30 | PC.NURSE ---
Pt no answer when called for reassessment.
== END 2024-10-01 22:34 | disposition left against medical advice (07) ==
PROVIDERS: Emergency Provider Emergency Medicine; PCP Family Medicine
DX: M79.604 Pain in right leg (principal); M79.605 Pain in left leg; R60.0 Localized edema
CPT/HCPCS: 93970; 99281; 99284

== ENCOUNTER 2024-11-30 14:34 | Outpatient (REF) | payer MEDICAID, SELFPAY ==
--- NOTE | 2024-11-30 14:39 | EMG_ITS ---
Chief complaint: Bilateral leg pain and heaviness, used to have lower back pain Reason for referral: Evaluate for neuropathy Referred by: Dr. Castillo Procedure done: Bilateral lower extremity NCS/EMG Precautions and/or limitations: History of ITP, last platelet count 08/2024 153,000 The limb temperature was monitored continuously and remained between 32-36 degrees C during the performance of the NCS. Nerve Conduction Studies Anti Sensory Summary Table ?Stim Site NR Onset (ms) Norm Onset (ms) Peak (ms) Norm Peak (ms) O-P Amp (?V) Norm O-P Amp Site1 Site2 Delta-0 (ms) Dist (cm) Timothy (m/s) Norm Timothy (m/s) Left Sural Anti Sensory (Lat Mall) Calf ? 2.2 3.3 <4.0 6.1 >5.0 Calf Lat Mall 2.2 14.0 64 Right Sural Anti Sensory (Lat Mall) Calf ? 2.0 3.0 <4.0 6.4 >5.0 Calf Lat Mall 2.0 14.0 70 Motor Summary Table ?Stim Site NR Onset (ms) Norm Onset (ms) O-P Amp (mV) Norm O-P Amp iAmp (mV) Amp (1st) (%) Site1 Site2 Delta-0 (ms) Dist (cm) Timothy (m/s) Norm Timothy (m/s) Right Peroneal Motor (Ext Dig Brev) Ankle ? 3.0 <4.0 4.8 >2.5 5.8 100.0 Ankle Ext Dig Brev 3.0 0.0 B Fib ? 8.0 4.5 5.3 93.8 B Fib Ankle 5.0 29.0 58 >40 Poplt ? 8.8 4.6 5.4 95.8 Poplt B Fib 0.8 4.5 56 >40 Left Tibial Motor (Abd Galvin Brev) Ankle ? 3.0 <5 13.8 >2.5 19.2 100.0 Ankle Abd Galvin Brev 3.0 0.0 Knee ? 9.1 12.9 17.7 93.5 Knee Ankle 6.1 33.5 55 >40 Right Tibial Motor (Abd Galvin Brev) Ankle ? 2.7 <5 21.1 >2.5 30.6 100.0 Ankle Abd Galvin Brev 2.7 0.0 Knee ? 8.9 13.0 17.6 61.6 Knee Ankle 6.2 33.0 53 >40 EMG ?Side Muscle Nerve Root Ins Act Fibs Psw Amp Dur Poly Recrt Int Pat Comment Right AbdHallucis MedPlantar S1-2 Incr 1+ 1+ Nml Nml 0 Nml Complete Right AntTibialis Dp Br Peron L4-5 Incr 1+ 1+ Nml Nml 0 Nml Complete Right PostTibialis Tibial L5, S1 Nml Nml Nml Nml Nml 0 Nml Complete Right MedGastroc Tibial S1-2 Nml Nml Nml Nml Nml 0 Nml Complete Right VastusMed Femoral L2-4 Nml Nml Nml Nml Nml 0 Nml Complete Left AbdHallucis MedPlantar S1-2 Nml Nml Nml Nml Nml 0 Nml Complete Left AntTibialis Dp Br Peron L4-5 Nml Nml Nml Nml Nml 0 Nml Complete Left PostTibialis Tibial L5, S1 Nml Nml Nml Nml Nml 0 Nml Complete Left MedGastroc Tibial S1-2 Nml Nml Nml Nml Nml 0 Nml Complete Left VastusMed Femoral L2-4 Nml Nml Nml Nml Nml 0 Nml Complete Paraspinal EMG ?Side Muscle Nerve Root Ins Act Fibs Psw Comment Right Lumbar Upper Rami Nml Nml Nml Right Lumbar Mid Rami Nml Nml Nml Right Lumbar Lower Rami Nml Nml Nml Left Lumbar Upper Rami Nml Nml Nml Left Lumbar Mid Rami Nml Nml Nml Left Lumbar Lower Rami Nml Nml Nml FINDINGS: All motor and sensory nerves tested showed normal latencies, amplitudes and conduction velocities. Concentric needle EMG was performed in selected muscles of the bilateral lower extremity lumbar paraspinals. Study revealed signs of electric abnormalities as shown in the table above. Right TA and AH showed increased insertional activity, PSWs and fibrillations. No denervation seen on lumbar paraspinals. IMPRESSION: 1. There is no electrodiagnostic evidence for peroneal neuropathy, tibial neuropathy. lumbosacral plexopathy, or peripheral neuropathy. 2. Can not rule out a right L5-S1 radiculopathy. CLINICAL COMMENT: Further clinical correlation recommended. Thank you for your kind referral. Ольга Mcconnell MD, DON Board Certified, [place] [employer] and [employer] (ABPMR) Board Certified, [place] [employer] Electro[employer] (ABEM) CODIN [id number] x 2 MTDD
== END 2024-11-30 14:35 | disposition home or self-care (01) ==
LOC: HO.NEURO 14:34
PROVIDERS: PCP Family Medicine; Visit Provider Family Medicine
DX: M79.604 Pain in right leg (principal); M79.605 Pain in left leg; R20.0 Anesthesia of skin
CPT/HCPCS: 95886; 95909

== ENCOUNTER → 2024-11-30 14:39 | Outpatient (BNV) | payer MEDICAID, SELFPAY | PROVIDERS: PCP Family Medicine; Visit Provider Physical Medicine & Rehabilitation | DX: M79.604 Pain in right leg (principal); M79.605 Pain in left leg | CPT/HCPCS: 95886; 95909 ==

== ENCOUNTER 2025-01-12 12:35 | Emergency (ER) | payer MEDICAID, SELFPAY ==
--- NOTE | ~2025-01-12 | XR_ITS ---
CLINICAL HISTORY: low back pain Radiographs of the lumbar spine, 3 views Comparison: 09/14/24 Findings: There is normal alignment. No fracture. The vertebral body heights are preserved. There is mild multilevel intervertebral disc space narrowing with mild endplate osteophytosis. Mild lower lumbar facet hypertrophy. The soft tissues are normal. Impression: No acute findings. Mild degenerative change. This document has been electronically signed by: Nasrin Chang MD on 01/12/2025 13:47:23
[2025-01-12 12:54] VITALS: BP 114/74; PULSE 82; RESP 16; TEMP 37.1; O2SAT 98; BMI 28.5
--- NOTE | 2025-01-12 13:02 | ED_ITS ---
HPI - General Adult General Chief complaint: Back Pain/Injury Stated complaint: Low back pain Time Seen by Provider: 01/12/25 15:08 Source: patient Mode of arrival: ambulatory Limitations: no limitations History of Present Illness ED Provider: Domi Moy PA-C HPI narrative: Patient is a 34 year old assigned female at with a history of migraines and h.pylori, presenting to the emergency department today with low back pain. Patient states that earlier today she was putting a baby stroller in the truck of the car when she bent over and had low back pain. Patient states that she has had low back issues before but they had gone away for awhile and now this happened. Patient denies any dizziness, lightheadedness, abdominal pain, nausea, vomiting, fever, chills, blurry vision, double vision, loss of vision, chest pain, difficulty breathing, shortness of breath, night sweats, pain with urination, increased urinary frequency, increased urinary urgency, blood in her urine or stool, syncope or a near syncopal episode, bowel incontinence, bladder incontinence, or any other complaints at this time. Relieving factors: none Exacerbating factors: none Associated symptoms: denies other symptoms Treatments prior to arrival: none Related Data Home Medications ?Medication ?Instructions ?Recorded ?Confirmed acetaminophen 650 mg tablet 650 mg PO Q6H PRN Headache 01/13/21 09/07/24 Previous Rx's ?Medication ?Instructions ?Recorded cyclobenzaprine 5 mg tablet 5 mg PO TID PRN low back pain 7 01/12/25 days #21 tabs prednisone 20 mg tablet 20 mg PO DAILY 7 days #7 tabs 01/12/25 Allergies Allergy/AdvReac Type Severity Reaction Status Date / Time pollen extracts [POLLEN] Allergy Mild UNKNOWN Verified 01/12/25 12:57 Review of Systems Constitutional: Constitutional: Reports no additional constitutional complaints, Denies chills, Denies fever(s) and Denies night sweats Eyes: Eyes: Reports no additional eye complaints, Denies blurry vision, Denies change in vision, Denies diplopia, Denies eye discharge, Denies loss of vision and Denies eye pain ENT: Denies dizziness Cardiovascular: Cardiovascular: Reports no additional cardiovascular complaints, Denies chest pain, Denies lightheadedness, Denies Loss of Consciousness and Denies dyspnea Respiratory: Respiratory: Reports no additional respiratory complaints and Denies dyspnea Gastrointestinal: Gastrointestinal: Reports no additional gastrointestinal complaints, Denies abdominal pain, Denies melena, Denies hematochezia, Denies change in bowel habits and Denies change in stool character Genitourinary: Genitourinary: Denies hematuria, Denies urinary frequency, Denies dysuria, Denies urinary incontinence, Denies urinary hesitancy and Denies urinary urgency Musculoskeletal: Musculoskeletal: Reports no additional musculoskeletal complaints, Reports back pain, Denies numbness and Denies tingling Neurologic: Denies dizziness, Denies loss of vision, Denies numbness and Denies tingling Psychiatric: Psychiatric: Reports no additional psychiatric complaints Endocrine: Endocrine: Reports no additional endocrine complaints Hematologic/Lymphatic: Hematologic/Lymphatic: Reports no additional hematologic/lymphatic complaints Allergic/Immunologic: Allergic/Immunologic: Reports no additional seven rgic/immunologic complaints PMFSH Past Medical History Attestation statement: The following information was validated with the patient. Source: old records reviewed and nursing notes reviewed Medical History Migraine with aura Bipolar disorder Anxiety Depression Seasonal allergies Thrombocytopenia Family History Family History Sister Diabetes Asthma Mother Hypertension Hx of stroke associated with blood clotting tendency Father Hx of cancer of lung History of throat cancer Social History Social History Household Members: Spouse and Children Housing: Apartment Are you a primary home health care case manager to a significant other at home: No Do you presently have visiting nurse or other home services: No Alcohol intake: former Patient Tobacco Use Status: Never used Tobacco Advance Directives: No Advance Directives Information Provided: No Do you have a plan to hurt others: No Plan service: No Current occupational status: unemployed Gender identity: Female Physical Exam ED Vital Signs: Vital Signs - 24 hr 01/12/25 12:54 01/12/25 15:13 Temperature 98.7 F 97.3 F Pulse Rate 82 71 Respiratory Rate 16 18 Blood Pressure 114/74 118/61 Pulse Oximetry 98 100 Oxygen Delivery Method Room Air Room Air BMI result Body Mass Index 28.5 Const General: cooperative, no acute distress, alert and awake Nutritional Appearance: well nourished Orientation/consciousness: patient oriented x3 Limitations: no limitations HENMT Head: Yes normal to inspection and Yes atraumatic Ears: hearing grossly normal bilaterally and external ears normal General nose exam: Normal external nose present, no nasal discharge noted and no epistaxis Face and sinus: Yes normal facial exam, No abrasion and No laceration Mouth: Normal oral and palatal mucosa present, no drooling and no muffled voice Eyes General: appearance normal, both eyes and all related structures Periorbital: periorbital findings normal Eyelids: Yes eyelids normal Conjunctivae: conjunctivae normal Pupils: Equal, round and reactive pupils present EOM: EOMs intact bilaterally Neck Neck: Yes normal visual inspection, Yes full ROM and Yes no lymphadenopathy Chest Chest palpation & inspection: normal inspection of the chest Resp Effort & Inspection: normal respiratory effort and able to speak in complete sentences GI Inspection: Yes normal to inspection Neuro General: patient oriented x3, moves all extremities and CN's II-XI intact bilaterally Cranial nerves: Yes Equal, round and reactive pupils present Cognition (Neuro): normal cognition Extrem General: Yes normal to inspection, Yes full ROM and Yes capillary refill normal Psych Appearance: grossly normal Mental Status: mental status grossly normal Affect: normal affect Attitude: cooperative Thought process: Normal thought process present Thought content: Normal thought content present Insight: Good insight present (Psych) Course Course Course Narrative: RME performed by Domi Moy PA-C. Patient is a 34 year old assigned fem james at presenting to the emergency department with low back pain. Patient states that she was putting her baby stroller in the car when she tweaked her low back. Detailed physical exam and review of systems are deferred to the line up machine operator. Imaging ordered. Patient placed back in the waiting room pending room availability and results. Medical Decision Making Medical Decision Making MDM Narrative: Patient is a 34 year old assigned female at with a history of migraines and h.pylori, presenting to the emergency department today with low back pain. Patient's physical exam was unremarkable. Patient's lumbar x-ray showed no acute process. I explained my physical exam findings as well as all test results to the patient. I answered all questions asked by the patient. I stressed the importance of the patient taking her medication as directed (either prescribed or as the over the counter packaging recommends). I stressed the importance of the patient following up with her primary care provider and given this seems to be a flare of a previously ongoing issue - a insurance law specialist. I stressed the importance of the patient returning to the emergency department immediately if her symptoms were to worsen or if she were to develop any dizziness, shortness of breath, difficulty breathing, chest pain, blurry vision, loss of vision, nausea, vomiting, abdominal pain, fever, chills, back pain, or any other complaints. Patient verbalized agreement and understanding with this treatment plan and discharge. Differential Diagnosis Differential Diagnoses: The differential diagnosis associated with the presentation includes Lumbar sprain Lumbar strain Muscle spasm Low back pain Admission/Observation Consideration of admission/observation: Escalation of care including admission/observation considered Patient would have been admitted to the hospital had her work up had any findings where hospital admission was appropriate and her clinical presentation warranted hospital admission. Independent Interpretation I performed an independent interpretation of an: Plain X-Ray Interpretation: My interpretation is in agreement with the radiologist's impression of this imaging study. CLINICAL HISTORY: low back pain Radiographs of the lumbar spine, 3 views Comparison: 09/14/24 Findings: There is normal alignment. No fracture. The vertebral body heights are preserved. There is mild multilevel intervertebral disc space narrowing with mild endplate osteophytosis. Mild lower lumbar facet hypertrophy. The soft tissues are normal. Impression: No acute findings. Mild degenerative change. This document has been electronically signed by: Nasrin Chang MD on 01/12/2025 13:47:23 Dictated By: Nasrin Rosen MD Signed By: Electronically signed by Nasrin Rosen MD 01/12/25 0428 Radiology Impression Discussion of test interpretation with radiology: I have reviewed the radiologist's reading. Prescription Management I considered prescription management with: Pain Medication (patient prescribed pain medication) Discharge Plan Discharge Clinical Impression: Lumbar sprain Patient Disposition: Home, Self-Care Instructions: Acute Low Back Pain (ED) Additional Instructions: Follow up with your primary care provider and a insurance law specialist. Return to the emergency department immediately if your symptoms worsen or if you develop any dizziness, shortness of breath, difficulty breathing, chest pain, blurry vision, loss of vision, nausea, vomiting, abdominal pain, fever, chills, back pain, or any other complaints. Prescriptions: New cyclobenzaprine 5 mg tablet 5 mg PO TID PRN (Reason: low back pain) 7 Days Qty: 21 0RF prednisone 20 mg tablet 20 mg PO DAILY 7 Days Qty: 7 0RF No Action acetaminophen 650 mg Tablet 650 mg PO Q6H PRN (Reason: Headache) Referrals: [facility] [Provider Group] (Call to establish and follow up with a insurance law specialist. ) [facility] [Provider Group] (Call to establish and follow up with a insurance law specialist. ) Reva Castillo DO [Primary Care Provider] - Stand Alone Forms: Work/School Release Interventions: ED Discharge Assessment Last Done: 01/12/25 15:13 Discharge Date/Time: 01/12/25 15:14 Print Language: Pashto
--- OUTSIDE RECORDS SUMMARY | 2025-01-12 13:15 | XMS_ITS | Encounter Summary ---
Author Organization [employer] Address [address] [place] [address] [address] [place] [address] Care Team Providers Care Teacher Asst Name Role Phone Marilou Judd Primary Care Provider [phone] Nathalia Proctor NP Primary Care Provider [phone] Reva Castillo DO Primary Care Provider + [phone] Encounter Details Date Type Department Care Team (Latest Contact Info) Description 01/21/2021 Abstract [facility] CONVERSIONS Dental, Provider, DDS Social History Tobacco Use Types Packs/Day Years Used Date Smoking Tobacco: Never Assessed Comments Unknown Sex and Gender Information Value Date Recorded Sex Assigned at Female 09/20/2022 10:14 AM EDT Legal Sex Female 10:14 AM EDT Gender Identity Female 09/20/2022 10:14 AM EDT Sexual Orientation Straight 09/20/2022 10 :14 AM EDT documented as of this encounter Plan of Treatment Not on file documented as of this encounter Visit Diagnoses Not on filedocumented in this encounter Care Teams Teacher Asst Relationship Specialty Start Date End Date Marilou Judd FNP PCP - General Family Medicine 09/11/21 08/29/23 Nathalia Proctor NP [address] [place], [place] [id number] PCP - General Family Medicine 08/30/23 09/21/23 Reva Castillo DO [address] [place], [place] [id number] PCP - General Family Medicine 09/22/23 documented as of this encounter
--- OUTSIDE RECORDS SUMMARY | 2025-01-12 13:16 | XMS_ITS | Encounter Summary ---
Author Organization [employer] Address [address] [place] [address] Care Team Providers Care Research Aide Name Role Phone Reva Castillo DO Primary Care Provider + [phone] Encounter Details Date Type Department Care Team (Latest Contact Info) Description 12/26/2024 Travel Social History Tobacco Use Types Packs/Day Years Used Date Smoking Tobacco: Never Passive Smoke Exposure: Never Smokeless Tobacco: Never Alcohol Use Standard Drinks/Week Comments Never 0 (1 standard drink = 0.6 oz pur e alcohol) Depression Answer Date Recorded Patient Health Questionnaire-9 Score 0 12/26/2024 Patient Health Questionnaire-9 Score 0 12/26/2024 Last PHQ-9: Questionnaire Data Not on file 0 12/26/2024 Housing Stability Answer Date Recorded What is your housing situation today? I have izabella klein 12/27/[address] you li ve. Do you have problems with any of the following? None of the above 12/27/2023 Food Insecurity Answer Date Recorded Within the past 12 months, y ou worried that your food would run out before you got money to buy more: Never True 12/27/2023 Within the past 12 months,th e food you bought just didn't last and you didn't have enough money to get more: Never True 04/2024 Transportation Answer Date Recorded In the past 12 months, has l ack of transportation kept you from medical appts, meetings, work or from getting things needed for daily living? No 12/27/2023 Utilities Answer Date Recorded In the past 12 months, has t he electric, gas, oil or water company threatened to shut off services in your home? No 12/27/2023 Depression Answer Date Recorded Patient Health Questionnaire-2 Score 0 12/26/2024 Internet Access Answer Date Recorded Internet Access Q1 No 12/26/2024 Internet Access Q2 I do not want or need it 03/2025 Comments Unknown Sex and Gender Information Value Date Recorded Sex Assigned at Female 09/20/2022 10:14 AM EDT Legal Sex Female 10:14 AM EDT Gender Identity Female 09/20/2022 10:14 AM EDT Sexual Orientation Straight 09/20/2022 10 :14 AM EDT documented as of this encounter Plan of Treatment Not on file documented as of this encounter Visit Diagnoses Not on filedocumented in this encounter Additional Health Concerns Assessment Noted Time PHQ-9 Depression Total Score: 0 12/26/19 25 10:10 AM EST documented as of this encounter Care Teams Research Aide Relationship Specialty Start Date End Date Reva Castillo DO [address] [place] [id number] PCP - General Family Medicine 09/22/23 documented as of this encounter
--- OUTSIDE RECORDS SUMMARY | 2025-01-12 13:16 | XMS_ITS | Encounter Summary ---
Author Organization [employer] Address [address] [address] [facility] 7t [place] [address] Care Team Providers Care Mr Teacher Name Role Phone Reva Castillo DO Primary Care Provider + [phone] Reason for Visit * Reason Onset Date Comments Appointment Request 04/13/2024 Encounter Details Date Type Department Care Team ([facility] st Contact Info) Description 04/13/2024 Telephone [facility] MEDICINE [address] [place] [address] Reva Castillo DO [address] [place] [address] Appointment Request Social History Tobacco Use Types Packs/Day Years Used Date Smoking Tobacco: Never Passive Smoke Exposure: Never Smokeless Tobacco: Never Alcohol Use Standard Drinks/Week Comments Never 0 (1 standard drink = 0.6 oz pur e alcohol) Depression Answer Date Recorded Patient Health Questionnaire-9 Score 0 02/16/2024 Patient Health Questionnaire-9 Score 0 02/16/2024 Last PHQ-9: Questionnaire Data Not on file 0 02/16/2024 Housing Stability Answer Date Recorded What is [...] Date Recorded Patient Health Questionnaire-2 Score 0 02/16/2024 Comments Unknown Sex and Gender Information Value Date Recorded Sex Assigned at Female 09/20/2022 10:14 AM EDT Legal Sex Female 10:14 AM EDT Gender Identity Female 09/20/2022 10:14 AM EDT Sexual Orientation Straight 09/20/2022 10 :14 AM EDT documented as of this encounter Miscellaneous Notes * Telephone Encounter - Swapna Payan - 04/13/2024 2:02 PM EDT Tc from pt requesting a PE appointment with provider. States appointment is needed for work. Will need appointment to be scheduled before 05/02. Please contact pt at [phone] documented in this encounter Plan of Treatment Not on file documented as of this encounter Visit Diagnoses Not on filedocumented in this encounter Additional Health Concerns Assessment Noted Time PHQ-9 Depression Total Score: 0 02/16/20 24 12:57 PM EDT documented as of this encounter Care Teams Mr Teacher Relationship Specialty Start Date End Date Reva Castillo DO [address] [place] [address] PCP - General Family Medicine 09/22/23 documented as of this encounter
--- OUTSIDE RECORDS SUMMARY | 2025-01-12 13:16 | XMS_ITS | Encounter Summary ---
Author Organization [employer] Address [address] [facility] 7t [place] [address] Care Team Providers Care Bookkeeping Clerks Supervisor Name Role Phone Reva Castillo DO Primary Care Provider + [phone] Encounter Details Date Type Department Care Team (Latest Contact Info) Description 12/19/2024 Travel Social History Tobacco Use Types Packs/Day [...] documented as of this encounter Care Teams Bookkeeping Clerks Supervisor Relationship Specialty Start Date End Date Reva Castillo DO [address] [place] [id number] PCP - General Family Medicine 09/22/23 documented as of this encounter
--- OUTSIDE RECORDS SUMMARY | 2025-01-12 13:16 | XMS_ITS | Encounter Summary ---
Author Organization [employer] Address [address] [place] [address] Care Team Providers Care Heavy Duty Press Operator Name Role Phone Reva Castillo DO Primary Care Provider + [phone] Encounter Details Date Type Department Care Team (Late st Contact Info) Description 02/03/2024 Orders Only [facility] [address] [place] [address] Ema Barajas MD [address] [place] [address] Social History Tobacco Use Types Packs/Day Years Used Date Smoking Tobacco: Never Smokeless Tobacco: Never Alcohol Use Standard Drinks/Week Comments Never 0 (1 standard drink = 0.6 oz pur e alcohol) Housing Stability Answer Date Recorded What is [...] off services in your home? No 12/27/2023 Comments Yes Sex and Gender Information Value Date Recorded Sex Assigned at Female 09/20/2022 10:14 AM EDT Legal Sex Female 10:14 AM EDT Gender Identity Female 09/20/2022 10:14 AM EDT Sexual Orientation Straight 09/20/2022 10 :14 AM EDT documented as of this encounter Plan of Treatment Not on file documented as of this encounter Visit Diagnoses Not on filedocumented in this encounter Care Teams Heavy Duty Press Operator Relationship Specialty Start Date End Date Reva Castillo DO [address] [place] [id number] PCP - General Family Medicine 09/22/23 documented as of this encounter
--- OUTSIDE RECORDS SUMMARY | 2025-01-12 13:16 | XMS_ITS | Encounter Summary ---
Author Organization [employer] Address [address] [place] [address] 7[address] [place] [address] Care Team Providers Care Lactation Specialist Name Role Phone Reva Castillo DO Primary Care Provider [phone] Reason for Visit * Reason Onset Date Comments Appointment Request 11/01/2023 Encounter Details Date Type Department Care Team ([facility] st Contact Info) Description 11/01/2023 Telephone [facility] MEDICINE [address] [place] [address] Reva Castillo DO [address] [place] [address] Appointment Request Social History Tobacco Use Types Packs/Day Years Used Date Smoking Tobacco: Never Smokeless Tobacco: Never Alcohol Use Standard Drinks/Week Comments Never 0 (1 standard drink = 0.6 oz pur e alcohol) Comments Yes Sex and Gender Information Value Date Recorded Sex Assigned at Female 09/20/2022 10:14 AM EDT Legal Sex Female 10:14 AM EDT Gender Identity Female 09/20/2022 10:14 AM EDT Sexual Orientation Straight 09/20/2022 10 :14 AM EDT documented as of this encounter Miscellaneous Notes * Telephone Encounter - Omer Caballero - 11/01/2023 1:05 PM EST Tc from pt requesting TP with new provider. Pt is 8 months and wants to meet her new pcp as soon as possible before her maternity. Please contact pt at [phone]. documented in this encounter Plan of Treatment Not on file documented as of this encounter Visit Diagnoses Not on filedocumented in this encounter Care Teams Lactation Specialist Relationship Specialty Start Date End Date Reva Castillo DO [address] [place] [address] PCP - General Family Medicine 09/22/23 documented as of this encounter
--- OUTSIDE RECORDS SUMMARY | 2025-01-12 13:16 | XMS_ITS | Encounter Summary ---
Author Organization [employer] Address [address] [facility] [address]t [place] [address] Care Team Providers Care Air Tool Operator Name Role Phone Reva Castillo DO Primary Care Provider + [phone] Encounter Details Date Type Department Care Team (Late st Contact Info) Description 12/26/2024 10:00 AM EST Office Visit [facility] MEDICINE [address] [place] [address] Reva Castillo DO [address] [place] [address] Social History Tobacco Use Types Packs/Day Years [...] AM EDT documented as of this encounter Last Filed Vital Signs Vital Sign Reading Time Taken Comments Blood Pressure 108/71 12/26/2024 10:09 AM EST Pulse 74 12/26/2024 10:09 AM EST Temperature 36.2 ??C (97.2 ??F) 12/26/2024 10:[address] Respiratory Rate 17 12/26/2024 10:09 AM EST Oxygen Saturation - - Inhaled Oxygen Concentration - - Weight 73.6 kg (162 lb 3.2 oz) 12/26/2024 10:09 AM EST Height 157.5 cm (5' 2 ) 12/26/2024 10:09 AM EST Body Mass Index 29.67 12/26/2024 10:09 AM EST documented in this encounter Plan of Treatment Not on file documented as of this encounter Visit Diagnoses Not on filedocumented in this encounter Additional Health Concerns Assessment Noted Time PHQ-9 Depression Total Score: 0 12/26/19 25 10:10 AM EST documented as of this encounter Care Teams Air Tool Operator Relationship Specialty Start Date End Date Reva Castillo DO [address] [place] [address] PCP - General Family Medicine 09/22/23 documented as of this encounter
--- OUTSIDE RECORDS SUMMARY | 2025-01-12 13:16 | XMS_ITS | Encounter Summary ---
Author Organization [employer] Address [address] [facility] 7t [place] [address] Care Team Providers Care Pecan Sheller Name Role Phone Reva Castillo DO Primary Care Provider + [phone] Reason for Visit * Reason Onset Date Comments Nurse Triage 07/05/2024 Encounter Details Date Type Department Care Team (Late st Contact Info) Description 07/05/2024 Telephone [facility] [address] [place] [address] Reva Castillo DO [address] [place], [place] [phone] Nurse Triage Social History Tobacco Use Types Packs/Day Years [...] encounter Miscellaneous Notes * Telephone Encounter - Misa Pozo RN - 07/05/2024 8:56 AM EDT called pt to triage spoke to pt. pt states started on Tuesday with frequent watery diarrhea, mild stomach aches, fatigue and nausea. pt states had some takeout on Tuesday and is not sure if that could be the cause. pt denies known fevers, vomiting other illness symptoms. given appt today with green team provider at 1:15 for exam. advised home care: rest, fluids, gatorade, light diet, and call back as needed. pt understands and agrees with plan. insurance verified. Protocol Used: Diarrhea (Adult) Protocol-Based Disposition: See in Office or Video Visit within 3 Days Video visit offer not recorded Positive Triage Question: * Patient wants to be seen * All higher-acuity triage questions were negative Care Advice Discussed: * Reassurance and Education - Diarrhea * Fluid Therapy During Severe Diarrhea * Food and Nutrition During Severe Diarrhea * Wash Your Hands * Expected Course * Reasons To Call Back - Signs of dehydration occur (e.g., no urine over 12 hours, very dry mouth, lightheaded, etc.) - Severe diarrhea lasts more than a day - Diarrhea lasts over 7 days - You become worse * Telephone Encounter - Hawa Kumari - 07/05/2024 8:01 AM EDT Symptoms: Diarrhea, Nausea But No Vomiting, Headache Outcome: Schedule a same-day appointment or talk to a nurse or provider today Reason: Caller denied all higher acuity questions The caller accepted this outcome documented in this encounter Plan of Treatment Not on file documented as of this encounter Visit Diagnoses Not on filedocumented in this encounter Additional Health Concerns Assessment Noted Time PHQ-9 Depression Total Score: 0 02/16/20 24 12:57 PM EDT documented as of this encounter Care Teams Pecan Sheller Relationship Specialty Start Date End Date Reva Castillo DO [address] [place] [address] PCP - General Family Medicine 09/22/23 documented as of this encounter
--- OUTSIDE RECORDS SUMMARY | 2025-01-12 13:16 | XMS_ITS | Encounter Summary ---
Author Organization [employer] Address 75 [facility] 7t [place] [address] Care Team Providers Care Equine Manager Name Role Phone Marilou Judd PSYCHOLOGIST EXPERIMENTAL Primary Care Provider [phone] Nathalia Proctor NP Primary Care Provider [phone] Reva Castillo DO Primary Care Provider + [phone] Reason for Visit * Reason Onset Date Comments Referral 11/17/2022 Encounter Details Date Type Department Care Team (Late st Contact Info) Description 11/17/2022 Telephone [facility] MEDICINE [address] [place] [address] Marilou Judd, PSYCHOLOGIST EXPERIMENTAL [address] [place] [address] Dept [place] [address] Referral Social History Tobacco Use Types Packs/Day Years Used Date Smoking Tobacco: Never Smokeless Tobacco: Never Alcohol Use Standard Drinks/Week Comments Never 0 (1 standard drink = 0.6 oz pur e alcohol) Comments Unknown Sex and Gender Information Value Date Recorded Sex Assigned at Female 09/20/2022 10:14 AM EDT Legal Sex Female 10:14 AM EDT Gender Identity Female 09/20/2022 10:14 AM EDT Sexual Orientation Straight 09/20/2022 10 :14 AM EDT COVID-19 Exposure Response Date Recorded In the last 10 days, have yo u been in contact with someone who was confirmed or suspected to have Coronavirus/COVID-19? No / Unsure 11/02/2022 11:12 AM EST documented as of this encounter Miscellaneous Notes * Telephone Encounter - Hernando Martinez - 11/17/2022 4:28 PM EST Tc from pt stating Physical therapy order was not sign and [facility] physical therapy needs PCP signature Please contact pt at [phone] documented in this encounter Plan of Treatment Not on file documented as of this encounter Visit Diagnoses Not on filedocumented in this encounter Care Teams Equine Manager Relationship Specialty Start Date End Date Marilou Judd FNP PCP - General Family Medicine 09/11/21 08/29/23 Nathalia Proctor NP [address] [place] [address] PCP - General Family Medicine 08/30/23 09/21/23 Reva Castillo DO [address] [place] [address] PCP - General Family Medicine 09/22/23 documented as of this encounter
--- OUTSIDE RECORDS SUMMARY | 2025-01-12 13:16 | XMS_ITS | Clinical Summary ---
Author Organization [employer] Address [address] [facility] 7t [place] [address] Care Team Providers Care Coverer Name Role Phone Reva Castillo DO Primary Care Provider Allergies Active Allergy Reactions Criticality Noted Date Comments Pollen Extract Low 09/05/2024 Other Reaction(s): UNKNOWN Medications ketotifen (Zaditor) 0.025 % ophthalmic solution INSTILL 1 DROP BY OPHTHALMIC ROUTE 2 TIMES EVERY DAY INTO AFFECTED EYE(S) NEEDED FOR ALLERGIES 5 mL 3 4 Active diphenhydrAMINE (BENADryl) 25 MG tablet Take 1 tablet (25 mg) by mouth every 6 (six) hours if needed for allergies. 30 tablet 4 Active loratadine (Claritin) 10 MG tablet Take 1 tablet (10 mg) by mouth Once per day. 30 tablet 11 4 03/09/20 25 Active triamcinolone (Nasacort) 55 MCG/ACT nasal inhaler Administer 2 sprays into each nostril Once per day. 16.9 g 4 03/09/20 25 Active sodium chloride ([place] Nasal [place]) 0.65 % nasal sprayIndications: Viral syndrome,Acute non-recurrent pansinusitis Administer 1 spray into each nostril if needed for congestion. 30 mL 4 03/20/20 25 Active hydrOXYzine pamoate (Vistaril) 25 MG capsule TAKE 1 TO 2 CAPSULES BY MOUTH EVERY 6 HOURS NEEDED ANXIETY 60 capsule 1 4 Active acetaminophen (Tylenol 8 Hour) 650 MG ER tabletIndications :COVID-19 Take 1 tablet (650 mg) by mouth every 8 (eight) hours if needed for mild pain. 40 tablet 1 4 Active cholecalciferol (Vitamin D-3) 25 MCG (1000 UT) tablet Take 1 tablet (25 mcg) by mouth Once per day. 90 tablet 3 Active gabapentin (Neurontin) 100 MG capsule Take 1 capsule (100 mg) by mouth at bedtime. 30 capsule 3 4 09/14/20 Active baclofen (Lioresal) 10 MG tablet Take 1 tablet (10 mg) by mouth if needed in the morning, at noon, and at bedtime for muscle spasms. 60 tablet 3 4 09/14/20 Active lidocaine (Lidoderm) 5 % patch Apply 1-2 patches topically if needed each day for mild pain. Remove & discard patch within 12 hours or as directed by MD. 60 patch 3 4 Active Active Problems Problem Noted Date Diagnosed Date Pelvic congestion syndrome 09/14/2024 History of Helicobacter pylori infection 024 History of COVID-19 09/14/2024 Chronic ITP (idiopathic thrombocytopenic purpura ) 05/02/2024 Anxiety 03/30/2024 Assessment & Plan (03/30/2024 2:37 PM EDT): With recent worsening -she denies any depressive sx -she is given the number for crisis -advised avoid SSRI, given h/o bipolar -she agree to trial vistaril prn acute anxiety -she declines referral to therapist at this time Chronic migraine with aura 02/25/2022 Seasonal allergies 02/25/2022 Chronic bipolar disorder 12/11/2015 Resolved Problems Problem Noted Date Diagnosed Date Resolved Date COVID-19 07/05/2024 08/16/2024 Assessment & Plan (07/05/2024 2:02 PM EDT): Patient declines Paxlovid prescription I advise rest and to drink plenty of fluids Quarantine as er CDC guidelines Acetaminophen PRN Diarrhea 07/05/2024 08/16/2024 Assessment & Plan (07/05/2024 2:03 PM EDT): Imodium PRN Acute non-recurrent pansinusitis 03/20/2024 03/30/2024 Assessment & Plan (03/20/2024 3:50 PM EDT): Pt here with c/o > 1 week of sinus congestion, pressure and purulent discharge. Pt's symptomatology and exam indiciative of sinusitis Already taking Oral antihsitaminics, And nasal deconmgestants Plan:Nasal saline, Augmentin BID x 10 days Follow up if no improvement Thrombocytopenia 02/16/2024 09/14/2024 Thrombocytopenic disorder 12/14/2017 Encounters Date Type Department Care Team Description 12/26/2024 10:00 AM EST Office Visit [facility] [address] [place] [address] Reva Castillo DO 12/26/2024 Travel 12/19/2024 Travel 12/03/2024 Travel 12/03/2024 Telephone [facility] MEDICINE [address] [place] [address] Reva Castillo DO Appointment Request (Follow Up EMG/Nerve Conduct Study([facility] 11/22/2024 Telephone [facility] MED[facility] [address] [place] [address] Reva Castillo DO [facility] Letter from Last 3 Months Immunizations Name Administration Dates Next Due DTP 1990,1990,1990 DTaP 01/26/1995,07/23/1991 HPV, Quadrivalent 01/20/2010,07/17/2009,05/06/20 09 Hep B, adult 12/19/2003,07/18/2003,01/11/2002 Hib (HbOC) 04/27/1991,01/26/1991,1990 IPV 01/26/1995, 1,1990,1989 Influenza Injectable Quadriv alant Preservative Free IIV4 MDCK 08/31/2020 Influenza injectable quadriv alent IIV4 with preservative 09/23/2016,08/06/2015 Influenza injectable quadriv alent preservative free 09/07/2021,09/11/2018,08/25/2017 Influenza, IIV3, injectable 09/20/2014 Influenza, Split (incl. yordy fied surface antigen) 08/24/2012 MMR 12/27/2023, 7,01/26/1995,1990 Pfizer Covid-19 Vaccine 12+ leonard-sucrose (Sebastian Cap) 08/24/2022,08/03/2022 TD (adult), 2 Lf tetanus tox oid, preservative free, adsorbed 03/24/2022,07/18/2003 Td (adult), 5 Lf tetanus tox oid, preservative free, adsorbed 09/04/2012 Tdap 11/02/2023,06/16/2017,10/04/2011 Family History Medical History Relation Name Comments Lung cancer Father Throat cancer Father Ovarian cancer Maternal Grandmother Hypertension Mother Stroke Mother Heart disease Mother's Brother Diabetes Sister 1 Asthma Sister 2 Relation Name Status Comments Brother Father Maternal Grandmother Mother Mother's Brother Sister 1 Sister 2 Alive Social History Tobacco Use Types Packs/Day Years Used Date Smoking Tobacco: Never Passive Smoke Exposure: Never Smokeless Tobacco: Never Tobacco Cessation:Counseling Given: Not Answered Alcohol Use Standard Drinks/Week Comments Never 0 [...] the past 12 months, has t he [employer], gas, oil or water company threatened to [...] Orientation Straight 09/20/2022 10 :14 AM EDT Last Filed Vital Signs Vital Sign Reading Time Taken Comments Blood Pressure 108/71 12/26/2024 10:09 AM EST Pulse 74 12/26/2024 10:09 AM EST Temperature 36.2 ??C (97.2 ??F) 12/26/2024 10:[address] Respiratory Rate 17 12/26/2024 10:09 AM EST Oxygen Saturation 98% 07/05/2024 1:03 PM EDT Inhaled Oxygen Concentration - - Weight 73.6 kg (162 lb 3.2 oz) 12/26/2024 10:09 AM EST Height 157.5 cm (5' 2 ) 12/26/2024 10:09 AM EST Body Mass Index 29.67 12/26/2024 10:09 AM EST Plan of Treatment Health Maintenance Due Date Last Done Comments Alcohol/Substance Use Screening 2002 Family Planning (PISQ) 2005 COVID-19 Vaccine ( season) 2024 08/24/2022, 08/03/2022 Influenza Vaccine (#1) 2024 , 08/31/2020, 09/11/2018, Additional history exists Depression Screening 12/26/2025 12/26/2024, 12/26/19 SDOH Screening 12/26/2025 12/26/2024 Tobacco Screening 12/26/2025 12/26/2024 Cervical Cancer Screening 05/28/2028 HPV/Cotest 05/28/2028 05/28/2023, 04/04/2020 Pap Smear 05/28/2028 05/28/2023, 04/04/2020 DTaP/Tdap/Td Vaccines (11 - Td or Tdap) 11/02/2033 11/02/2023, 03/24/2022, 06/16/2017, Additional history exists Zoster Vaccines (1 of 2) 01/20/2040 RSV Patients and Patients Aged 60 years or older (1 - 1-dose 75+ series) 2065 HIB Vaccines Completed 04/27/1991, 06/1991, 1990 IPV Vaccines Completed 01/26/1995, 12/1990, 1990, Additional history exists Hepatitis B Vaccines Completed 12/19/2003, 07/18/2003, 01/11/2002 HPV Vaccines Completed 01/20/2010, 06/22, 05/06/2009 HIV Screening Completed 02/16/2024 Hepatitis C Screening Completed 02/16/2024 Hepatitis A Vaccines Aged Out No long er eligible based on patient's age to complete this topic Meningococcal Vaccine Aged Out No karina steve eligible based on patient's age to complete this topic Pneumococcal Vaccine: Pediatrics (0 to 5 Years) and At-Risk Patients (6 to 49) Years) Aged Out No longer eligible based on patient's age to complete this topic RSV under 20 months Aged Out No longe r eligible based on patient's age to complete this topic Rotavirus Vaccines Aged Out No longer eligible based on patient's age to complete this topic Procedures Procedure Name Priority Date/Time Associated Diagnosis Comments HEPATITIS C AB W/REFL TO HCV RNA, QN, PCR Routine 02/16/2024 12:01 PM EDT Thrombocytopenia (CMS/HCC) Healthcare maintenance HIV 1/2 ANTIGEN/ANTIBODY, FOURTH GENERATION W/RFL Routine 02/16/2024 12:01 PM EDT Thrombocytopenia (CMS/HCC) Healthcare maintenance HM PAP/HPV Routine 05/28/2023 from Last 3 Months or Most Recently Relevant to Health Maintenance Results * Hepatitis C Antibody with Reflex to HCV, RNA, Quantitative, Real-Time PCR (02/16/2024 12:01 PM EDT) Hepatitis C Antibody Nonreactive Nonreactive [facility] Comment:Antibodies to HCV no t detected; does not exclude early acuteHCV infection. Blood Venous blood specimen / Unknown 02/16/2024 12:01 PM EDT 02/16/2024 1:15 PM EDT Reva Castillo DO LAB BLOOD ORDERABLES Final R esult Performing Organization Address City/[facility]/ZIP Co de Phone Number [facility] [address] [place] [phone] * HIV-1/2 Antigen and Antibodies, Fourth Generation, with Reflexes (02/16/2024 12:01 PM EDT) HIV AB/AG Nonreactive Nonreactive [facility] Comment:HIV-1 p24 Ag and/or HIV-1/HIV-2 Ab not detected.A test result that is nonreactive does not exclude thepossibility of exposure to or infection with HIV-1 and/orHIV-2. Nonreactive results in this assay for individualswith prior exposure to HIV-1 and/or HIV-2 may be due toantigen and antibody levels that are below the limit ofdetection of this assay.The VPEP HIV Ag/Ab Combo assay result andsupplemental assay results should be interpreted inconjunction with the patient's clinical presentation,history and other laboratory results. If the results areinconsistent with clinical evidence, additional testing issuggested to confirm the result. Blood Venous blood specimen / Unknown 02/16/2024 12:01 PM EDT 02/16/2024 1:15 PM EDT Reva Castillo DO LAB BLOOD ORDERABLES Final R esult Performing Organization Address [facility]/ZIP Co de Phone Number [facility] [address] [place] [address] [phone] * HM PAP/HPV (05/28/2023) Pap Smear 1. NILM 1. NILM HPV Not Detected Undetected, Indeterminat e, Quantitative , Not Detected us Historical Provider HEALTH MAINTENANCE Final Result from Last 3 Months or Most Recently Relevant to Health Maintenance Insurance [facility] C3 Care Teams Coverer Relationship Specialty Start Date End Date Reva Castillo DO [address] [place] [phone] PCP - General Family Medicine 09/22/23
[2025-01-12 15:13] VITALS: BP 118/61; PULSE 71; RESP 18; TEMP 36.3; O2SAT 100
== END 2025-01-12 15:14 | disposition home or self-care (01) ==
PROVIDERS: Emergency Provider Emergency Medicine; PCP Family Medicine
DX: S39.012A Strain of muscle, fascia and tendon of lower back, initial encounter (principal); X50.9XXA Other and unspecified overexertion or strenuous movements or postures, initial encounter; Y93.F9 Activity, other caregiving; Y92.810 Car as the place of occurrence of the external cause; Y99.9 Unspecified external cause status
CPT/HCPCS: 72100; 99282; 99283

== ENCOUNTER → 2025-01-12 13:03 | Outpatient (BNV) | payer MEDICAID, SELFPAY | PROVIDERS: PCP Family Medicine; Visit Provider Radiology Diagnostic Radiology | DX: M54.50 Low back pain, unspecified (principal) | CPT/HCPCS: 72100 ==

== ENCOUNTER 2025-02-01 18:05 | Outpatient (REF) | payer SELFPAY ==
--- OUTSIDE RECORDS SUMMARY | 2025-02-01 18:09 | XMS_ITS | Encounter Summary ---
Author Organization [employer] Address [address] [place] [address] [address]t [place] [address] Care Team Providers Care Info Specialist Name Role Phone Reva Castillo DO Primary Care Provider + [phone] Reason for Visit * Reason Comments UTI Encounter Details Date Type Department Care Team ([facility] st Contact Info) Description 02/01/2025 3:45 PM EDT Office Visit [facility] MEDICINE [address] [place] [address] Barbara Park CNP [address] [place], [place] [phone] Dysuria (Primary Dx); Urinary frequency; Vaginal discharge Social History Tobacco Use Types Packs/Day Years [...] Sign Reading Time Taken Comments Blood Pressure 123/78 02/01/2025 3:56 PM EDT Pulse 80 02/01/2025 3:56 PM EDT Temperature 36.8 ??C (98.2 ??F) 02/01/2025 3:56 PM ED T Respiratory Rate 16 02/01/2025 3:56 PM EDT Oxygen Saturation 98% 02/01/2025 3:56 PM EDT Inhaled Oxygen Concentration - - Weight 74.4 kg (164 lb) 02/01/2025 3:56 PM EDT Height - - Body Mass Index 30 12/26/2024 10:09 AM EST documented in this encounter Plan of Treatment Scheduled Orders Name Type Priority Associated Diagnoses Orde r Schedule Urinalysis, Complete, with Reflex to Culture Lab Routine Dysuria Urinary frequency Expected: 02/01/2025 (Approximate), Expires: 02/01/2026 Bacterial Vaginosis Panel Microbiology Routine Vaginal discharge Ordered: 02/01/2025 documented as of this encounter Procedures Procedure Name Priority Date/Time Associated Diagnosis Comments POCT , URINE Routine 02/01/2025 4:33 PM EDT Dysuria POCT URINALYSIS DIPSTICK Routine 02/01/2025 4:31 PM EDT Dysuria documented in this encounter Results * POCT Urine (02/01/2025 4:33 PM EDT) Preg Test, Ur Negative Negative, Indeterminate, None Detected, Invalid, Specimen unsatisfactory for evaluation, Weakly Positive QC Media Lot # [id number] Lot# Expiration Date [id number] Urine 02/01/2025 4:33 PM EDT [facility] POINT OF CARE TEST ENTER/ EDIT ORDERABLES Final Result * (ABNORMAL) POCT Urinalysis (02/01/2025 4:31 PM EDT) Color, UA Light Yellow Clarity, UA Clear Glucose, UA Negative Bilirubin, UA Negative Ketones, UA Negative Spec Grav, UA 1.015 Blood, UA Positive(A) Negative, None Detected Comment:Trace-Intact pH, UA 7.0 Protein, UA Negative Urobilinogen, UA 0.2 Leukocytes, UA Negative Negative, Rare, Trace Nitrite, UA Negative Negative, None Detected Appearance, UA Light Yellow QC Media Lot # [id number] Lot# Expiration Date [id number] Urine 02/01/2025 4:31 PM EDT Result [facility] POINT OF CARE TEST ENTER/ EDIT ORDERABLES Final Result documented in this encounter Visit Diagnoses Diagnosis Dysuria- Primary Urinary frequency Vaginal discharge Leukorrhea, not specified as infective documented in this encounter Additional Health Concerns Assessment Noted Time PHQ-9 Depression Total Score: 0 12/26/19 25 10:10 AM EST documented as of this encounter Care Teams Info Specialist Relationship Specialty Start Date End Date Reva Castillo DO [address] [place] [address] PCP - General Family Medicine 09/22/23 documented as of this encounter
--- OUTSIDE RECORDS SUMMARY | 2025-02-01 18:09 | XMS_ITS | Encounter Summary ---
Author Organization [employer] Address [address] [place] [address] [address]t [place] [address] Care Team Providers Care Drapery And Upholstery Measurer Name Role Phone Marilou Judd Primary Care Provider [phone] Nathalia Proctor NP Primary Care Provider [phone] Reva Castillo DO Primary Care Provider + [phone] Encounter Details Date Type Department Care Team (Latest Contact Info) Description 01/21/2021 Abstract [facility] CONVERSIONS Dental, Provider, DDS Social History Tobacco [...] on filedocumented in this encounter Care Teams Drapery And Upholstery Measurer Relationship Specialty Start Date End Date Marilou Judd FNP PCP - General Family Medicine 09/11/21 08/29/23 Nathalia Proctor NP [address] [place], [place] [phone] PCP - General Family Medicine 08/30/23 09/21/23 Reva Castillo DO [address] [place], [place] PCP - General Family Medicine 09/22/23 documented as of this encounter
--- OUTSIDE RECORDS SUMMARY | 2025-02-01 18:09 | XMS_ITS | Encounter Summary ---
Author Organization [employer] Address [address] [facility] [address] [place] [address] Care Team Providers Care Tooth Cutter Contact Wheel Name Role Phone Reva Castillo DO Primary Care Provider + [phone] Encounter Details Date Type Department Care Team (Late st Contact Info) Description 02/03/2024 Orders Only [facility] [address] [place] [address] Ema Barajas MD [address] [place] [address] Social History Tobacco Use Types Packs/Day Years [...] on filedocumented in this encounter Care Teams Tooth Cutter Contact Wheel Relationship Specialty Start Date End Date Reva Castillo DO [address] [place] [address] PCP - General Family Medicine 09/22/23 documented as of this encounter
--- OUTSIDE RECORDS SUMMARY | 2025-02-01 18:09 | XMS_ITS | Encounter Summary ---
Author Organization [employer] Address [address] [facility] 7t [place] [address] Care Team Providers Care Acquisition Advisor Name Role Phone Reva Castillo DO Primary Care Provider + [phone] Reason for Visit * Reason Onset Date Comments Appointment Request 04/13/2024 Encounter Details Date Type Department Care Team ([facility] st Contact Info) Description 04/13/2024 Telephone [facility] MEDICINE [address] [place] [address] Reva Castillo DO [address] [place], [place] [phone] Appointment Request Social History Tobacco Use Types [...] scheduled before 05/02. Please contact pt at [phone] documented in this encounter Plan of Treatment Not on file documented as of this encounter Visit Diagnoses Not on filedocumented in this encounter Additional Health Concerns Assessment Noted Time PHQ-9 Depression Total Score: 0 02/16/20 24 12:57 PM EDT documented as of this encounter Care Teams Acquisition Advisor Relationship Specialty Start Date End Date Reva Castillo DO [address] [place] [address] PCP - General Family Medicine 09/22/23 documented as of this encounter
--- OUTSIDE RECORDS SUMMARY | 2025-02-01 18:09 | XMS_ITS | Encounter Summary ---
Author Organization [employer] Address [address] [facility] 7t [place] [address] Care Team Providers Care Electronic Induction Hardener Name Role Phone Reva Castillo DO Primary Care Provider + [phone] Encounter Details Date Type Department Care Team ([facility] st Contact Info) Description 02/01/2025 Population Health Risk Score [facility] Care [facility] (C3) Department [address] [facility] [address] [place] [id number] Provider, Population Health Generic Social History Tobacco Use Types Packs/Day Years [...] documented as of this encounter Care Teams Electronic Induction Hardener Relationship Specialty Start Date End Date Reva Castillo DO [address] [place] [address] PCP - General Family Medicine 09/22/23 documented as of this encounter
--- OUTSIDE RECORDS SUMMARY | 2025-02-01 18:09 | XMS_ITS | Encounter Summary ---
Author Organization [employer] Address 75 [facility] 7t [place] [address] Care Team Providers Care Working Supervisor Name Role Phone Reva Castillo DO Primary Care Provider + [phone] Encounter Details Date Type Department Care Team (Late st Contact Info) Description 02/01/2025 Telephone [facility] [address] [place] [address] Barbara Park CNP [address] [place] [address] Social History Tobacco Use Types Packs/Day Years [...] encounter Miscellaneous Notes * Telephone Encounter - Asuncion Joshi - 02/01/2025 3:48 PM EDT Pt walked in for apt on 02/01/2025 due to e rejected insurance pt agreed on signing a self pay form which will be scanned into the system. documented in this encounter Plan of Treatment Not on file documented as of this encounter Visit Diagnoses Not on filedocumented in this encounter Additional Health Concerns Assessment Noted Time PHQ-9 Depression Total Score: 0 12/26/19 25 10:10 AM EST documented as of this encounter Care Teams Working Supervisor Relationship Specialty Start Date End Date Reva Castillo DO [address] [place] [address] PCP - General Family Medicine 09/22/23 documented as of this encounter
--- OUTSIDE RECORDS SUMMARY | 2025-02-01 18:09 | XMS_ITS | Clinical Summary ---
Author Organization [employer] Address 75 [facility] 7t [place] [address] Care Team Providers Care Brake Operator Heavy Duty Name Role Phone Reva Castillo DO Primary Care Provider Allergies Active Allergy Reactions Criticality Noted Date Comments Gramineae Pollens Unknown Low 01/12/2025 Pollen Extract Low 09/05/2024 Other Reaction(s): UNKNOWN [...] g 4 03/09/20 25 Active sodium chloride ([place] Nasal [place]) 0.65 % nasal sprayIndications: Viral syndrome,Acute non-recurrent [...] mouth Once per day. 90 tablet 3 4 Active gabapentin (Neurontin) 100 MG capsule Take [...] Active Problems Problem Noted Date Diagnosed Date Lumbar sprain 01/31/2025 Pelvic congestion syndrome 09/14/2024 History of Helicobacter [...] Encounters Date Type Department Care Team Description 02/01/2025 3:45 PM EDT Office Visit [facility] [place] [address] Barbara Park CNP Dysuria (Primary Dx); Urinary frequency; Vaginal discharge 02/01/[address] [address] Barbara Park CNP 02/01/2025 Travel 02/01/2025 Population Health Risk Score [facility] () Department [address] [phone] Provider, Population Health Generic 01/31/[address] [address] Reva Castillo DO Chart Prep 01/31/[address] [address] Reva Castillo DO Nurse Triage 01/12/2025 Orders Only [facility] External Provider, [facility] 12/26/2024 10:00 AM EST Office Visit [facility] [place] [address] Reva Castillo DO 12/26/2024 Travel 12/19/2024 Travel 12/03/2024 Travel 12/03/[address] [address] Reva Castillo DO Appointment Request (Follow Up EMG/Nerve Conduct Study([facility])) 11/22/2024 Telephone [facility] [address] [place] [address] [phone] Reva Castillo DO Stable Imaging Letter from Last 3 Months Immunizations Name Administration Dates Next Due DTP 1990,1990,1990 DTaP 01/26/1995,07/23/1991 HPV, Quadrivalent 01/20/2010,07/17/2009,05/06/20 09 Hep B, adult 12/19/2003,07/18/2003,01/11/2002 Hib ([facility]) 04/27/1991,01/26/1991,1990 IPV 01/26/1995, 1,1990,1989 Influenza Injectable Quadriv [...] t he electric, gas, oil or water [employer] threatened to shut off services in your [...] (164 lb) 02/01/2025 3:56 PM EDT Height 157.5 cm (5' 2 ) 12/26/2024 10:09 AM EST Body Mass Index 30 12/26/2024 10:09 AM EST Plan of Treatment [...] DIPSTICK Routine 02/01/2025 4:31 PM EDT Dysuria XR LUMBAR SPINE 2-3 VIEWS Routine 01/12/2025 1:47 PM EST HEPATITIS C AB W/REFL TO HCV RNA, QN, PCR Routine 02/16/2024 12:01 PM EDT Thrombocytopenia ([facility]) Healthcare maintenance HIV 1/2 ANTIGEN/ANTIBODY, FOURTH GENERATION W/RFL Routine 02/16/2024 12:01 PM EDT Thrombocytopenia ([facility]) Healthcare maintenance HM PAP/HPV Routine 05/28/2023 from Last 3 Months or Most Recently Relevant to Health Maintenance Results * POCT Urine (02/01/2025 4:33 PM EDT) Preg Test, Ur Negative Negative, Indeterminate, None Detected, Invalid, Specimen unsatisfactory for evaluation, Weakly Positive QC Media Lot # [id number] Lot# Expiration Date [id number] Urine 02/01/2025 4:33 PM EDT [facility] POINT OF CARE TEST ENTER/ EDIT ORDERABLES [...] Media Lot # [id number] Lot# Expiration Date [id number] Urine 02/01/2025 4:31 PM EDT [facility] POINT OF CARE TEST ENTER/ EDIT ORDERABLES Final Result * XR Lumbar Spine 2-3 Views (01/12/2025 1:47 PM EST) Anatomical Region Laterality Modality Spine, L-spine Radiographic Lizzy ging 01/12/2025 1:47 PM EST Narrative 01/12/2025 1:49 PM EST ? [facility] ?[address] ?[place] [address] ?XRay Report ? Signed ? Patient: Adriana Golden ?MR#: [id number] ? : 1990 ?Acct:[id number] ? Age/Sex: 34 / F ?ADM Date: 01/12/25 ? Loc: HO.ED ? Attending Dr: ? Ordering Physician: Domi Moy ?? Date of Service: 01/12/25 ?? Procedure(s): XR lumbar spine 2-3V ?? Accession Number(s): [id number] ? cc: Domi Moy; Reva Castillo DO ? CLINICAL HISTORY: low back pain ? Radiographs of the lumbar spine, 3 views ? Comparison: 09/14/24 ? Findings: ?? There is normal alignment. ?? No fracture. ?? The vertebral body heights are preserved. There is mild multilevel ?? intervertebral disc space narrowing with mild endplate osteophytosis. ?? Mild lower lumbar facet hypertrophy. ?? The soft tissues are normal. ? Impression: ?? No acute findings. ?? Mild degenerative change. ? This document has been electronically signed by: Nasrin Chang MD ?? on 01/12/2025 13:47:23 ? Dictated By: ?Nasrin Rosen MD ? Signed By: ?<Electronically signed by Nasrin Rosen MD in OV> ? 01/12/258 ? DD/ 1347 ? TD/TT: 01/12/257 ? Senior Market Research Analyst: ? Procedure Note Donotuseinterpreter, Image - 01/12/[address] [address] XRay Report Signed Patient: Ace Golden#: [id number] : 1990Acct:[id number] Age/Sex: 34 / FADM Date: 01/12/25 Loc: HO.ED Attending Dr: Ordering Physician: Domi Moy Date of Service: 01/12/25 Procedure(s): XR lumbar spine 2-3V Accession Number(s): [id number] cc: Domi Moy; Reva Castillo DO CLINICAL HISTORY: low back pain Radiographs of the lumbar spine, 3 views Comparison: 09/14/24 Findings: There is normal alignment. No fracture. The vertebral body heights are preserved. There is mild multilevel intervertebral disc space narrowing with mild endplate osteophytosis. Mild lower lumbar facet hypertrophy. The soft tissues are normal. Impression: No acute findings. Mild degenerative change. This document has been electronically signed by: Nasrin Chang MD on 01/12/2025 13:47:23 Dictated By: Nasrin Rosen MD Signed By: <Electronically signed by Nasrin Rosen MD in OV> 01/12/25 1348 DD/ 1347 TD/TT: 01/12/25 1347 Senior Market Research Analyst: [facility] External Provider IMG XR PROCEDURES Edited Result - Final * Hepatitis C Antibody with Reflex to HCV, RNA, Quantitative, Real-Time PCR (02/16/2024 12:01 PM EDT) Hepatitis C Antibody Nonreactive Nonreactive [facility] Comment:Antibodies to HCV no t detected; does not exclude early acuteHCV infection. Blood Venous blood specimen / Unknown 02/16/2024 12:01 PM EDT 02/16/2024 1:15 PM EDT Reva Castillo DO LAB BLOOD ORDERABLES Final R esult Performing Organization Address [facility]/ZIP Co de Phone Number [facility] [address] [place] [address] [phone] * HIV-1/2 Antigen and Antibodies, Fourth Generation, with Reflexes (02/16/2024 12:01 PM EDT) HIV AB/AG Nonreactive Nonreactive [facility] Comment:HIV-1 p24 Ag and/or HIV-1/HIV-2 Ab not detected.A test result that is nonreactive does not exclude thepossibility of exposure to or infection with HIV-1 and/orHIV-2. Nonreactive results in this assay for individualswith prior exposure to HIV-1 and/or HIV-2 may be due toantigen and antibody levels that are below the limit ofdetection of this assay.The [employer] HIV Ag/Ab Combo assay result andsupplemental assay results should be interpreted inconjunction with the patient's clinical presentation,history and other laboratory results. If the results areinconsistent with clinical evidence, additional testing issuggested to confirm the result. Blood Venous blood specimen / Unknown 02/16/2024 12:01 PM EDT 02/16/2024 1:15 PM EDT Reva Castillo DO LAB BLOOD ORDERABLES Final R esult Performing Organization Address [facility]/ZIP Co de Phone Number [facility] [address] [place] [address] [phone] * HM PAP/HPV (05/28/2023) Pap Smear 1. NILM 1. NILM HPV Not Detected Undetected, Indeterminat e, Quantitative , Not Detected Historical Provider HEALTH MAINTENANCE Final Result from Last 3 Months or Most Recently Relevant to Health Maintenance Care Teams Brake Operator Heavy Duty Relationship Specialty Start Date End Date Reva Castillo DO [address] [place] [address] PCP - General Family Medicine 09/22/23
--- OUTSIDE RECORDS SUMMARY | 2025-02-01 18:09 | XMS_ITS | Encounter Summary ---
Author Organization [employer] Address 75 [facility] 7t [place] [address] Care Team Providers Care Acquisition Lead Name Role Phone Reva Castillo DO Primary Care Provider + [phone] Encounter Details Date Type Department Care Team (Late st Contact Info) Description 01/12/2025 Orders Only [facility] External Provider, [facility] Social History Tobacco Use Types Packs/Day Years [...] your housing situation today? I have izabella lkein 12/27/[address] you li [...] on file documented as of this encounter Procedures Procedure Name Priority Date/Time Associated Diagnosis Comments XR LUMBAR SPINE 2-3 VIEWS Routine 01/12/2025 1:47 PM EST documented in this encounter Results * XR Lumbar Spine 2-3 Views (01/12/2025 1:47 PM EST) Anatomical Region Laterality Modality Spine, L-spine Radiographic Lizzy ging 01/12/2025 1:47 PM EST Narrative 01/12/2025 1:49 PM EST ? [facility] ?[address] ?[place] [address] ?XRay Report ? Signed ? Patient: Adriana Golden ?MR#: [id number] ? : 1990 ?Acct:[id number] ? Age/Sex: 34 / F ?ADM Date: 01/12/25 ? Loc: HO.ED ? Attending Dr: ? Ordering Physician: Domi Moy ?? Date of Service: 01/12/25 ?? Procedure(s): XR lumbar spine 2-3V ?? Accession Number(s): [id number] ? cc: Domi Moy; Reva Castillo DO [...] by Nasrin Rosen MD in OV> ? 01/12/25 1348 ? DD/ 1347 ? TD/TT: 01/12/25 1347 ? News Librarian: ? Procedure Note Donotphilter, Image - 01/12/[address] [address] XRay Report Signed Patient: Ace Golden#: [id number] : 1990Acct:[id number] Age/Sex: 34 / FADM Date: 01/12/25 Loc: HO.ED Attending Dr: Ordering Physician: Domi Moy Date of Service: 01/12/25 Procedure(s): XR lumbar spine 2-3V Accession Number(s): [id number] cc: Domi Moy; Reva Castillo DO CLINICAL [...] 01/12/25 1348 DD/ 1347 TD/TT: 01/12/25 1347 News Librarian: [facility] External Provider IMG XR PROCEDURES Edited Result - Final documented in this encounter Visit Diagnoses Not on filedocumented in this encounter Additional Health Concerns Assessment Noted Time PHQ-9 Depression Total Score: 0 12/26/19 25 10:10 AM EST documented as of this encounter Care Teams Acquisition Lead Relationship Specialty Start Date End Date Reva Castillo DO [address] [place] [address] PCP - General Family Medicine 09/22/23 documented as of this encounter
--- OUTSIDE RECORDS SUMMARY | 2025-02-01 18:09 | XMS_ITS | Encounter Summary ---
Author Organization [employer] Address [address] [facility] [address] 7t [place] [address] Care Team Providers Care Director Airport Operations Name Role Phone Reva Castillo DO Primary Care Provider + [phone] Encounter Details Date Type Department Care Team (Latest Contact Info) Description 02/01/2025 Travel Social History Tobacco Use Types Packs/Day [...] documented as of this encounter Care Teams Director Airport Operations Relationship Specialty Start Date End Date Reva Castillo DO [address] [place] [address] PCP - General Family Medicine 09/22/23 documented as of this encounter
--- OUTSIDE RECORDS SUMMARY | 2025-02-01 18:09 | XMS_ITS | Encounter Summary ---
Author Organization [employer] Address 75 [facility] 7t [place] [address] Care Team Providers Care Cadastral Engineer Name Role Phone Marilou Judd SAP GATHERER Primary Care Provider [phone] Nathalia Proctor NP Primary Care Provider [phone] Reva Castillo DO Primary Care Provider + [phone] Reason for Visit * Reason Onset Date Comments Referral 11/17/2022 Encounter Details Date Type Department Care Team (Late st Contact Info) Description 11/17/[address] [facility] [address] [place] [address] Marilou Judd, SAP GATHERER [address] [place] [address] [place] [address] Referral Social History Tobacco Use [...] Physical therapy order was not sign and [facility] physical [facility] needs PCP signature Please contact pt at [phone] documented in this encounter Plan of Treatment Not on file documented as of this encounter Visit Diagnoses Not on filedocumented in this encounter Care Teams Cadastral Engineer Relationship Specialty Start Date End Date Marilou Judd FNP PCP - General Family Medicine 09/11/21 08/29/23 Nathalia Proctor NP [address] [place] [address] PCP - General Family Medicine 08/30/23 09/21/23 Reva Castillo DO [address] [place] [address] PCP - General Family Medicine 09/22/23 documented as of this encounter
--- OUTSIDE RECORDS SUMMARY | 2025-02-01 18:09 | XMS_ITS | Encounter Summary ---
Author Organization [employer] Address 75 [facility] 7t [place] [address] Care Team Providers Care Human Resources Associate Name Role Phone Reva Castillo DO Primary Care Provider + [phone] Reason for Visit * Reason Onset Date Comments Nurse Triage 07/05/2024 Encounter Details Date Type Department Care Team (Late st Contact Info) Description 07/05/2024 Telephone [facility] [address] [place] [address] Reva Castillo DO [address] [place], [place] [phone] Nurse Triage Social History Tobacco Use Types [...] documented as of this encounter Care Teams Human Resources Associate Relationship Specialty Start Date End Date Reva Castillo DO [address] [place] [address] PCP - General Family Medicine 09/22/23 documented as of this encounter
--- OUTSIDE RECORDS SUMMARY | 2025-02-01 18:09 | XMS_ITS | Encounter Summary ---
Author Organization [employer] Address 75 [facility] 7t [place] [address] Care Team Providers Care Junior [employer] Principal Name Role Phone Reva Castillo DO Primary Care Provider + [phone] Reason for Visit * Reason Onset Date Comments Nurse Triage 01/31/2025 Encounter Details Date Type Department Care Team (Late st Contact Info) Description 01/31/2025 Telephone [facility] [address] [place] [address] Reva Castillo DO [address] [place], [place] [phone] Nurse Triage Social History Tobacco Use Types [...] encounter Miscellaneous Notes * Telephone Encounter - Amy Faith RN - 01/31/2025 9:17 AM EDT Call returned to Adriana Golden to triage below. Reports having pain with passing urine x 5 days. Pt endorses dark color to urine. Mild odor. Having vaginal yellow discharge. No vulvar rash. Pt having both pelvic and flank pain. Denies any nausea vomiting or fever. Pt offered Wic today, declines due to work scheudle, agrees to appt tomorrow. Reviewed home care advise, ER precautions and reasons to call back. Reviewed WIC operating hours and that wait times vary. Protocol Used: Urination Pain - Female (Adult) Protocol-Based Disposition: Go to Office or Video Visit Now Future Appointments Date Time Provider Department Center 02/01/2025 3:45 PM Barbara Park [facility] Insurance verified as active per Real Time Eligibility in [facility]. Video visit offer not recorded Positive Triage Question: * Side (flank) or lower back pain present * All higher-acuity triage questions were negative Care Advice Discussed: * Reassurance and Education - Possible Urine Infection * Drink Extra Fluids * Reasons To Call Back - Fever or back pain occurs - You become worse * Telephone Encounter - Madelin Kirkland - 01/31/2025 8:34 AM EDT Symptom: Urination Pain Outcome: Schedule an urgent appointment (within 1 hour) or talk to a nurse or provider soon Reason: Severe pain now The caller accepted this outcome. documented in this encounter Plan of Treatment Not on file documented as of this encounter Visit Diagnoses Not on filedocumented in this encounter Additional Health Concerns Assessment Noted Time PHQ-9 Depression Total Score: 0 12/26/19 25 10:10 AM EST documented as of this encounter Care Teams Junior High School Principal Relationship Specialty Start Date End Date Reva Castillo DO [address] [place] [address] PCP - General Family Medicine 09/22/23 documented as of this encounter
--- OUTSIDE RECORDS SUMMARY | 2025-02-01 18:09 | XMS_ITS | Encounter Summary ---
Author Organization [employer] Address 75 [facility] 7t [place] [address] Care Team Providers Care Field Auditor Name Role Phone Reva Castillo DO Primary Care Provider + [phone] Reason for Visit * Reason Onset Date Comments Chart Prep 01/31/2025 Encounter Details Date Type Department Care Team (Late st Contact Info) Description 01/31/2025 Telephone [facility] [address] [place] [address] Reva Castillo DO [address] [place], [place] [phone] Chart Prep Social History Tobacco Use Types Packs/Day Years [...] encounter Miscellaneous Notes * Telephone Encounter - Shreyas Kirkland MA - 01/31/2025 2:27 PM EDT Chart Prep Labs: not applicable Images: done Vaccines due: yes Flu Covid Referrals: complete Screenings: None Overdue care gaps: Sbirt documented in this encounter Plan of Treatment Not on file documented as of this encounter Visit Diagnoses Not on filedocumented in this encounter Additional Health Concerns Assessment Noted Time PHQ-9 Depression Total Score: 0 12/26/19 25 10:10 AM EST documented as of this encounter Care Teams Field Auditor Relationship Specialty Start Date End Date Reva Castillo DO [address] [place] [address] PCP - General Family Medicine 09/22/23 documented as of this encounter
--- OUTSIDE RECORDS SUMMARY | 2025-02-01 18:09 | XMS_ITS | Encounter Summary ---
Author Organization [employer] Address [address] [place] [address] 7t [place] [address] Care Team Providers Care Auto Salvage Worker Name Role Phone Reva Castillo DO Primary Care Provider [phone] Reason for Visit * Reason Onset Date Comments Appointment Request 11/01/2023 Encounter Details Date Type Department Care Team ([facility] st Contact Info) Description 11/01/2023 Telephone [facility] [address] [place] [address] Reva Castillo DO [address] [place] [address] Appointment Request Social History Tobacco Use Types [...] before her maternity. Please contact pt at [phone]. documented in this encounter Plan of Treatment Not on file documented as of this encounter Visit Diagnoses Not on filedocumented in this encounter Care Teams Auto Salvage Worker Relationship Specialty Start Date End Date Reva Castillo DO [address] [place] [address] PCP - General Family Medicine 09/22/23 documented as of this encounter
[2025-02-01 18:19] LABS: Appearance Urine Clear; Color Urine Yellow; Glucose Urine UA Negative (Negative); Leukocyte Esterase Urine Trace (Negative); Nitrite Urine Negative (Negative); UMIC TRIGGER UACC YES; Urine Blood Negative (Negative); Urine Ketones Negative (Negative); Urine Protein Negative (Neg-Trace)
[2025-02-01 18:21] LABS: Bacteria Urine None Seen (None Seen); Hyaline Casts Urine 0-2 /LPF (0-2); RBC Urine 0-2 /HPF (0-2); Squamous Epithelial Cell Urine 0-2 /HPF (0-2); WBC Urine 0-5 /HPF (0-5)
[2025-02-02 08:38] LABS: Bacterial Vaginosis PCR NEGATIVE (Negative); Candida Group PCR NOT DETECTED (Not Detect); Candida glab krusei PCR DETECTED (Not Detect); Trichomonas vaginalis PCR NOT DETECTED (Not Detect)
== END 2025-02-01 18:06 | disposition home or self-care (01) ==
LOC: HO.HHCLNP 18:05
DX: N89.8 Other specified noninflammatory disorders of vagina (principal); R30.0 Dysuria; R35.0 Frequency of micturition
CPT/HCPCS: 81001; 81515

== ENCOUNTER 2025-05-13 15:45 | Outpatient (REF) | payer MEDICAID, SELFPAY ==
--- NOTE | ~2025-05-13 | XR_ITS ---
Exam: 4 view bilateral knees x-ray TECHNIQUE: AP standing, sunrise, AP axial, and lateral views lower extremity joint Indication bilateral knee pain worsening Prior: September 14, 2024 FINDINGS: Right knee: Joint spaces are preserved. There are no osteophytes. There are no erosions. There is no soft tissue calcification. There is no joint effusion. Left knee: Joint spaces are preserved. There are no osteophytes. There are no erosions. There is no soft tissue calcification. There is no joint effusion XR/XR Knee Candido 4V Impression: Unremarkable bilateral knees, no change. Electronically signed by: Toy Yates MD 05/13/2025 05:12 PM EDT
== END 2025-05-13 15:46 | disposition home or self-care (01) ==
LOC: HO.HHCX 15:45
PROVIDERS: PCP Family Medicine; Visit Provider Family Medicine
DX: M25.561 Pain in right knee (principal); M25.562 Pain in left knee
CPT/HCPCS: 73564

== ENCOUNTER → 2025-05-13 16:03 | Outpatient (BNV) | payer MEDICAID, SELFPAY | PROVIDERS: PCP Family Medicine; Visit Provider Radiology Diagnostic Radiology | DX: M25.561 Pain in right knee (principal); M25.562 Pain in left knee | CPT/HCPCS: 73564 ==

== ENCOUNTER 2025-05-29 16:29 | Outpatient (REF) | payer MEDICAID, SELFPAY ==
--- NOTE | ~2025-05-29 | MR_ITS ---
EXAMINATION: MR LUMBAR SPINE WITHOUT CONTRAST CLINICAL INFORMATION: Low back pain radiating to lower extremities. No injuries. COMPARISON: Correlated to x-ray dated January 12, 2025. TECHNIQUE: MRI of the lumbar spine was obtained using routine sequences without contrast. FINDINGS: Last rib-bearing vertebra labeled T12. No bone marrow STIR signal abnormality. Disc desiccation L4-5 and L5-S1. Focal hyperintense T2 STIR signal in the posterior aspect of the intervertebral disc L4-5 likely focal annular fissure. There is normal alignment. Conus medullaris and at pedicle of L1 with normal signal. Decreased bone marrow signal on T1 and T2. T11-12: No disc herniation. No neuroforamina stenosis. T12-L1: No disc herniation. No neuroforamina stenosis. L1-2: No disc herniation. No neuroforamina stenosis. L2-3: No disc herniation. No neuroforamina stenosis. L3-4: Broad-based disc bulging. Facet joint hypertrophy. No compression upon neural elements. L4-5: Central disc herniation resulting in ventral deformity of the thecal sac and abutting the L5 nerve roots on the lateral recesses. Facet joint and ligamentum flavum hypertrophy. Reduced AP diameter of the thecal sac. No gross neuroforamina stenosis. L5-S1: Broad-based disc bulging. Facet joint hypertrophy. Bilateral neuroforamina narrowing encroaching the L5 exiting nerve roots. No prevertebral compartment hematoma, mass or fluid collection. MR/MR lumbar spine wo con IMPRESSION: Central herniated disc at L4-5 abutting the L5 nerve roots on the lateral recesses. Spondylosis at L4-5 and L5-S1 resulting in central spinal canal stenosis at L4-5 and bilateral neuroforamina stenosis at L5-S1. A lymphoproliferative disorder among other etiologies cannot be excluded. Electronically signed by: Francisco Javier Zarate MD 05/30/2025 07:44 AM EDT
== END 2025-05-29 16:30 | disposition home or self-care (01) ==
LOC: HO.MRI 16:29
PROVIDERS: PCP Family Medicine; Visit Provider Family Medicine
DX: M79.604 Pain in right leg (principal); M79.605 Pain in left leg
CPT/HCPCS: 72148

== ENCOUNTER → 2025-05-29 16:29 | Outpatient (BNV) | payer MEDICAID, SELFPAY | PROVIDERS: PCP Family Medicine; Visit Provider Radiology Diagnostic Radiology | DX: M47.816 Spondylosis without myelopathy or radiculopathy, lumbar region (principal); M48.061 Spinal stenosis, lumbar region without neurogenic claudication; D47.Z9 Other specified neoplasms of uncertain behavior of lymphoid, hematopoietic and related tissue | CPT/HCPCS: 72148 ==

== ENCOUNTER 2025-07-01 09:38 | Outpatient (AMB) | payer MEDICAID, SELFPAY ==
--- NOTE | 2025-07-01 10:01 | A.SPINEOV_ITS ---
Intake Visit Reasons: low back pain Intake Note: Ms. Golden is here today c/o low back pain. MRI done @ [facility]. Buzzsaw Operator Required: No Allergies pollen extracts (POLLEN) Allergy (Mild, Verified 01/12/25 12:57) UNKNOWN Assessment & Plan Assessment & Plan (1) Back pain: Code(s): M54.9 - Dorsalgia, unspecified Category: Medical (2) Mass of spine: Code(s): M89.8X8 - Other specified disorders of bone, other site Category: Medical Plan Dear Dr Castillo, Thank you for referring Mrs Golden to our office today. This is a very nice 35 year old female who presents to the office today for evaluation of low back pain that started about a year ago. Initially it was something that was subtle and manageable but has progressed over the last year to be a constant throbbing type pain that will occasionally radiate down into her legs. The pain gets worse with standing, walking and activity. 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 She also recently had a baby about a year ago and the pain seemed to be a little aggravate it after that. She does spend a lot of time up and down with a baby on the floor etc.. She does take Tylenol and ibuprofen as needed but not sure if it is really doing all that much. No tingling numbness or symptoms consistent with cauda equina syndrome. Lumbar MRI showed disc bulging at L4-5 and she was referred today for an evaluation. To this point she has had no dedicated conservative treatment. PMH: Otherwise healthy, history of tubal surgery. Social hx: Does not smoke, drink use any recreational drugs Medications: Just Tylenol and Motrin as needed Allergies: None Physical exam: Awake alert oriented no acute distress able to stand and walk d own the hallway without any evidence of antalgic gait or instability. Strength in the lower extremities is full, reflexes slightly brisk but no clonus. Imaging review: There is a lumbar MRI done at [place] showing somewhat early disc degeneration at L4-5 with this desiccation and disc bulging more on the left. I would rate this as mild. There is no overt signs of nerve compression but the disc does come near the L5 nerve root. Not noted by the radiologist but incidentally noted by myself was what appears to be a rounded mass measuring a few mm in size in the intrathecal space which seems to have the features of a schwannoma. It is not causing any significant displacement or compression of any localize nerves. Impression: 35-year-old female presents for evaluation of 1 year of prog ressively worsening back pain in the setting of degenerative disc disease at L4- 5. I reviewed her imaging with her, we discussed the fact that often these degenerative discs may or may not be the source of back pain and there is no way to tell 100%, so in light of the fact that has just some mild degeneration we would not pursue surgery. The back pain certainly could be coming from the fact that she has a 1-year-old home in his doing a lot of lifting, bending and having to be on the floor with the baby in addition to having a new job where she is doing a lot more sitting and going up and down out of chairs. I recommended she try nonoperative measures 1st and this would include starting with just some physical therapy, and I gave her a note for a stand up desk and a more comfortable chair at work. Incidentally noted at the MRI but not reported by the radiologist is what I believe to be a schwannoma at L2 in the intrathecal space. I do not have a contrast study to officially confirm this so I will order and follow up on that test once completed. If it is a schwannoma, these are benign and typically are just followed radiographically unless they get to the size where there causing neurological issues. These do not typically cause back pain unless they are enormous in size and hers is very small. Her neurological exam is excellent so I do not think it is causing any compromise of neural tissue either. Thank you for allowing us to care for your patient. The total time spent with this visit with this patient was 45 minutes reviewing history, physical exam, lumbar imaging review, and implementation of treatment plan or further diagnostic testing Braulio Hinds MD,PhD [facility] Orders: Orders MR lumbar spine wo/w con Today M89.8X8 - Other specified disorders of bone, other site PT Evaluation and Treatment Today M54.9 - Dorsalgia, unspecified Coding Level of Care Code New Pt Level 4 (20104) Diagnoses Back pain M54.9 Mass of spine M89.8X8
--- OUTSIDE RECORDS SUMMARY | 2025-07-01 10:07 | XMS_ITS | Encounter Summary ---
Author Organization [employer] Address [address] [facility] [address] [place] [address] Care Team Providers Care Systems Architect Name Role Phone Marilou Judd Primary Care Provider Zenaida vailable Nathalia Proctor OSTRICH FARMER Primary Care Provider +- Rvea Castillo DO Primary Care Provider + [phone] Encounter Details Date Type Department Care Team (Latest Contact Info) Description 02/05/2020 Abstract [facility] CONVERSIONS Dental, Provider, DDS Social History Tobacco [...] on filedocumented in this encounter Care Teams Systems Architect Relationship Specialty Start Date End Date Marilou Judd FNP PCP - General Family Medicine 09/11/21 08/29/23 Nathalia Proctor NP [address] [place] [address] PCP - General Family Medicine 08/30/23 09/21/23 Reva Castillo DO [address] [place] [address] PCP - General Family Medicine 09/22/23 documented as of this encounter
== END 2025-07-01 11:11 | disposition home or self-care (01) ==
LOC: HO.HNS 09:39
PROVIDERS: PCP Family Medicine; Referring Provider Family Medicine; Visit Provider Physician Assistant
DX: M54.9 Dorsalgia, unspecified (principal); M89.8X8 Other specified disorders of bone, other site
CPT/HCPCS: 99204

== ENCOUNTER → 2025-07-01 09:38 | Outpatient (BNVA) | payer MEDICAID, SELFPAY | PROVIDERS: PCP Family Medicine; Referring Provider Family Medicine; Visit Provider Physician Assistant | DX: M89.8X8 Other specified disorders of bone, other site (principal); M51.360 Other intervertebral disc degeneration, lumbar region with discogenic back pain only | CPT/HCPCS: 99212 ==

== ENCOUNTER 2025-07-11 16:01 | Outpatient (REF) | payer MEDICAID, SELFPAY ==
--- NOTE | ~2025-07-11 | MR_ITS ---
EXAMINATION: MR LUMBAR SPINE WITHOUT AND WITH CONTRAST CLINICAL INFORMATION: eval for possible schwannoma at L2 COMPARISON: Lumbar spine MRI on May 29, 2005 TECHNIQUE: MRI of the lumbar spine was obtained using routine sequences before and after intravenous administration of 7 cc of contrast gadolinium Gadavist. FINDINGS: Vertebral label follows the same as on the previous examination. Alignment and vertebrae: No malalignment. No compression fracture. Bone marrow: No bone marrow edema. No bone marrow replacing lesion. Intervertebral discs: Disc desiccation change without significant loss of height of L4-L5 and L5-S1 discs. Conus: Terminates at L1-2 level. No abnormal signal of the included conus. There is a 0.7 x 0.6 x 0.5 cm enhancing nodule in the cauda equina at the level of L3 vertebral body (14:9, 13:24). Soft tissues: Posterior paraspinal soft tissues are unremarkable. Other findings: No suspicious findings in the included retroperitoneum. Findings by level: T11-T12: No disc herniation. No spinal canal or neuroforaminal stenosis. T12-L1: No disc herniation. No spinal canal and neuroforaminal stenosis. L1-L2: No disc herniation. No spinal canal or neuroforaminal stenosis. L2-L3: No disc herniation. No spinal canal or neuroforaminal stenosis. L3-L4: Minimal bulging disc. No spinal canal and neuroforamina stenosis. L4-L5: Bulging disc and superimposed central disc protrusion contributes to decreased AP diameter of the thecal sac. No neural foraminal stenosis. L5-S1: Minimal bulging disc with superimposed right foraminal disc protrusion that contributes to mild right neuroforaminal stenosis. No spinal canal or left neuroforaminal stenosis. MR/MR lumbar spine wo/w con IMPRESSION: 1. Enhancing nodule in the cauda equina, at the level of L3 vertebral body, measuring 0.7 x 0.6 x 0.5 cm. Differential considerations would include myxopapillary ependymoma and schwannomas. 2. Mild degenerative changes in the lower lumbar spine, more pronounced at L4-L5. Electronically signed by: Jori Elena MD 07/11/2025 05:56 PM EDT
--- OUTSIDE RECORDS SUMMARY | 2025-07-11 16:07 | XMS_ITS | Encounter Summary ---
Author Organization [employer] Address [address] [facility] [address]t [place] [address] Care Team Providers Care Market Development Manager Name Role Phone Marilou Judd Primary Care Provider Zenaida vailable Nathalia Proctor SHREDDED FILLER HOPPER FEEDER Primary Care Provider +- Reva Castillo DO Primary Care Provider + [phone] Encounter Details Date Type Department Care Team (Latest Contact Info) Description 02/05/2020 Abstract [facility] CONVERSIONS Dental, Provider, DDS Social History [...] on filedocumented in this encounter Care Teams Market Development Manager Relationship Specialty Start Date End Date Marilou Judd FNP PCP - General Family Medicine 09/11/21 08/29/23 Nathalia Proctor NP [address] [place] [address] PCP - General Family Medicine 08/30/23 09/21/23 Reva Castillo DO [address] [place] [address] PCP - General Family Medicine 09/22/23 documented as of this encounter
== END 2025-07-11 16:02 | disposition home or self-care (01) ==
LOC: HO.MRI 16:01
PROVIDERS: PCP Family Medicine; Visit Provider Physician Assistant
DX: M89.8X8 Other specified disorders of bone, other site (principal)
CPT/HCPCS: 72158; A9585

== ENCOUNTER → 2025-07-11 16:07 | Outpatient (BNV) | payer MEDICAID, SELFPAY | PROVIDERS: PCP Family Medicine; Visit Provider Radiology Body Imaging | DX: D43.4 Neoplasm of uncertain behavior of spinal cord (principal) | CPT/HCPCS: 72158 ==

== ENCOUNTER 2025-08-03 15:40 | Outpatient (REF) | payer MEDICAID, SELFPAY ==
--- NOTE | ~2025-08-03 | MR_ITS ---
EXAMINATION: MR CERVICAL SPINE WITHOUT AND WITH CONTRAST CLINICAL INFORMATION: M89. 8 x 8. Other specified disorders of bone, other site. COMPARISON: None available. TECHNIQUE: MRI of the cervical spine was obtained using routine sequences with and without contrast. Intravenous contrast: Gadolinium based 7.0 mL. No reported immediate complications FINDINGS: Craniocervical junction is intact. Normal position of the cerebellar tonsils. No signal abnormality or enhancing lesion within the cervical spinal cord. No abnormal enhancement in the prevertebral compartment. No bone marrow STIR signal abnormality. Mild reverse curvature apex at C3-4. Normal alignment. C2-3: No disc herniation. No neuroforamina stenosis. C3-4: Broad-based disc osteophyte consummation. No cord compression. No neuroforamina stenosis. C4-5: No disc herniation. No neuroforamina stenosis. C5-6: No disc herniation. No neuroforamina stenosis. C6-7: No disc herniation. No neuroforamina stenosis. C7-T1: No disc herniation. No neuroforamina stenosis. T1-2: No disc herniation. No neuroforamina stenosis. No prevertebral compartment hematoma, mass or fluid collection. Flow-void signal within the main vessels is normal. Right vertebral artery is slightly dominant. Nonspecific mildly prominent cervical lymph nodes. MR/MR cervical spine wo/w con IMPRESSION: No enhancing lesion. No cord signal abnormality, mass or myelopathy. Spondylosis C3-4 without compression upon neural elements. Electronically signed by: Francisco Javier Zarate MD 08/05/2025 08:24 AM EDT
--- NOTE | ~2025-08-03 | MR_ITS ---
EXAMINATION: MR THORACIC SPINE WITHOUT AND WITH CONTRAST CLINICAL INFORMATION: M89.8 x 8. Other specified disorders of bone, other site. COMPARISON: None available. TECHNIQUE: MRI of the thoracic spine was obtained using routine sequences with and without contrast. Intravenous contrast: Gadolinium based 7.0 mL.. No reported immediate complications FINDINGS: No abnormal enhancement within the thoracic spinal cord. No cord signal abnormality or enhancing lesion. No abnormal enhancement within the prevertebral compartment. No bone marrow STIR signal abnormality. Focal, 9 mm intrinsic hyperintense T1 signal at T8 likely intraosseous hemangioma. Mild multilevel marginal osteophyte formation and disc desiccation. Facet joint hypertrophy as well as ligamentum flavum at T5-6, T6-7, and T10-11. Normal alignment. No disc herniation. No cord compression. No prevertebral compartment hematoma, mass or fluid collection. MR/MR thoracic spine wo/w con IMPRESSION: No enhancing lesion in the thoracic spinal cord, central canal or the prevertebral compartment. No cord edema and or myelopathy. Mild multilevel spondylosis. No herniated disc or cord compression. No acute fracture or gross listhesis. Electronically signed by: Francisco Javier Zarate MD 08/05/2025 08:33 AM EDT
--- OUTSIDE RECORDS SUMMARY | 2025-08-03 15:48 | XMS_ITS | Encounter Summary ---
Author Organization [employer] Address [address] [place] [address] Care Team Providers Care Supervisor Tunnel Heading Name Role Phone EfrainReva martins Primary Care Provider + [phone] Encounter Details Date Type Department Care Team (Late st Contact Info) Description 02/03/2024 Orders Only [facility] [address] [place] [address] Ema Barajas MD [address] [place] [address] Social History Tobacco Use Types Packs/Day Years [...] on filedocumented in this encounter Care Teams Supervisor Tunnel Heading Relationship Specialty Start Date End Date Reva Castillo DO [address] [place] [address] PCP - General Family Medicine 09/22/23 documented as of this encounter
--- OUTSIDE RECORDS SUMMARY | 2025-08-03 15:48 | XMS_ITS | Encounter Summary ---
Author Organization [employer] Address [address] [facility] 7t [place] [address] Care Team Providers Care Service Or Work Dispatcher Name Role Phone Reva Castillo DO Primary Care Provider + [phone] Reason for Visit * Reason Comments Med Refill Encounter Details Date Type Department Care Team ([facility] st Contact Info) Description 05/20/2025 Refill [facility] MEDICINE [address] [place] [address] Reva Castillo DO [address] [place], [place] [phone] Acute non-recurrent frontal sinusitis; Seasonal allergic rhinitis due to other allergic trigger Social History Tobacco Use Types Packs/Day Years [...] not want or need it 03/2025 Comments No Sex and Gender Information Value Date Recorded Sex Assigned at Female 09/20/2022 10:14 AM EDT Legal Sex Female 10:14 AM EDT Gender Identity Female 09/20/2022 10:14 AM EDT Sexual Orientation Straight 09/20/2022 10 :14 AM EDT documented as of this encounter Plan of Treatment Not on file documented as of this encounter Visit Diagnoses Diagnosis Acute non-recurrent frontal sinusitis Seasonal allergic rhinitis due to other allergic trigger documented in this encounter Additional Health Concerns Assessment Noted Time PHQ-9 Depression Total Score: 0 12/26/19 25 10:10 AM EST documented as of this encounter Care Teams Service Or Work Dispatcher Relationship Specialty Start Date End Date Reva Castillo DO [address] [place] [address] PCP - General Family Medicine 09/22/23 documented as of this encounter
--- OUTSIDE RECORDS SUMMARY | 2025-08-03 15:48 | XMS_ITS | Encounter Summary ---
Author Organization [employer] Address [address] [facility] 7t [place] [address] Care Team Providers Care Database Administrator Name Role Phone Reva Castillo DO Primary Care Provider + [phone] Reason for Visit * Reason Onset Date Comments Nurse Triage 07/05/2024 Encounter Details Date Type Department Care Team ([facility] st Contact Info) Description 07/05/2024 Telephone [facility] MEDICINE [address] [place] [address] Reva Castillo DO [address] [place] [address] Nurse Triage Social History Tobacco Use Types [...] documented as of this encounter Care Teams Database Administrator Relationship Specialty Start Date End Date Reva Castillo DO [address] [place] [address] PCP - General Family Medicine 09/22/23 documented as of this encounter
--- OUTSIDE RECORDS SUMMARY | 2025-08-03 15:48 | XMS_ITS | Encounter Summary ---
Author Organization [employer] Address [address] [facility] 7t [place] [address] Care Team Providers Care Gas Check Pad Maker Name Role Phone Reva Castillo DO Primary Care Provider + [phone] Reason for Visit * Reason Onset Date Comments Appointment Request 11/01/2023 Encounter Details Date Type Department Care Team ([facility] st Contact Info) Description 11/01/2023 Telephone [facility] MEDICINE [address] [place] [address] Reva Castillo DO [address] [place] [address] Appointment Request Social History Tobacco Use Types [...] before her maternity. Please contact pt at [phone]. documented in this encounter Plan of Treatment Not on file documented as of this encounter Visit Diagnoses Not on filedocumented in this encounter Care Teams Gas Check Pad Maker Relationship Specialty Start Date End Date Reva Castillo DO [address] [place] [address] PCP - General Family Medicine 09/22/23 documented as of this encounter
--- OUTSIDE RECORDS SUMMARY | 2025-08-03 15:48 | XMS_ITS | Encounter Summary ---
Author Organization [employer] Address [address] [facility] 7[address] [place] [address] Care Team Providers Care Supervisor Safety Deposit Name Role Phone Marilou JuddP Primary Care Provider Zenaida vailable Nathalia Proctor NP Primary Care Provider +- Reva Castillo DO Primary Care Provider + [phone] Encounter Details Date Type Department Care Team (Latest Contact Info) Description 01/21/2021 Abstract [facility] CONVERSIONS Dental, Provider, DDS Social History [...] filedocumented in this encounter Care Teams Supervisor Safety Deposit Relationship Specialty Start Date End Date Marilou Judd FNP PCP - General Family Medicine 09/11/21 08/29/23 Nathalia Proctor NP [address] [place] [address] PCP - General Family Medicine 08/30/23 09/21/23 Reva Castillo DO [address] [place] [address] PCP - General Family Medicine 09/22/23 documented as of this encounter
--- OUTSIDE RECORDS SUMMARY | 2025-08-03 15:48 | XMS_ITS | Encounter Summary ---
Author Organization [employer] Address [address] [facility] [address] [place] [address] Care Team Providers Care Teacher Selection Specialist Name Role Phone Reva Castillo DO Primary Care Provider + [phone] Reason for Visit * Reason Onset Date Comments Appointment Request 04/13/2024 Encounter Details Date Type Department Care Team ([facility] st Contact Info) Description 04/13/2024 Telephone [facility] MEDICINE [address] [place], [place] [phone] Reva Castillo DO [address] [place] [address] Appointment Request Social History Tobacco Use Types [...] scheduled before 05/02. Please contact pt at [phone] documented in this encounter Plan of Treatment Not on file documented as of this encounter Visit Diagnoses Not on filedocumented in this encounter Additional Health Concerns Assessment Noted Time PHQ-9 Depression Total Score: 0 02/16/20 24 12:57 PM EDT documented as of this encounter Care Teams Teacher Selection Specialist Relationship Specialty Start Date End Date Reva Castillo DO [address] [place] [address] PCP - General Family Medicine 09/22/23 documented as of this encounter
--- OUTSIDE RECORDS SUMMARY | 2025-08-03 15:48 | XMS_ITS | Encounter Summary ---
Author Organization [employer] Address [address] [facility] [address]t [place] [address] Care Team Providers Care Float Nurse Name Role Phone Marilou Judd Primary Care Provider Zenaida vailable Nathalia Proctor PHOTOGRAPHER'S ASSISTANT Primary Care Provider +- Reva Castillo DO Primary Care Provider + [phone] Encounter Details Date Type Department Care Team (Latest Contact Info) Description 02/05/2020 Abstract [facility] CONVERSIONS Dental, Provider, DDS Social History Tobacco [...] on filedocumented in this encounter Care Teams Float Nurse Relationship Specialty Start Date End Date Marilou Judd FNP PCP - General Family Medicine 09/11/21 08/29/23 Nathalia Proctor NP [address] [place] [address] PCP - General Family Medicine 08/30/23 09/21/23 Reva Castillo DO [address] [place] [address] PCP - General Family Medicine 09/22/23 documented as of this encounter
--- OUTSIDE RECORDS SUMMARY | 2025-08-03 15:48 | XMS_ITS | Encounter Summary ---
Author Organization [employer] Address [address] [facility] 7t [place] [address] Care Team Providers Care Proposal Consultant Name Role Phone Marilou Judd INFORMATION RESOURCE CONSULTANT Primary Care Provider Nathalia Hendricks NP Primary Care Provider [phone] Reva Castillo DO Primary Care Provider + [phone] Reason for Visit * Reason Onset Date Comments Referral 11/17/2022 Encounter Details Date Type Department Care Team (Late st Contact Info) Description 11/17/2022 Telephone [facility] MEDICINE [address] [place] [address] Marilou Judd FNP Referral Social History Tobacco Use Types Packs/Day [...] Physical therapy order was not sign and [facility] physical therapy needs PCP signature Please contact pt at [phone] documented in this encounter Plan of Treatment Not on file documented as of this encounter Visit Diagnoses Not on filedocumented in this encounter Care Teams Proposal Consultant Relationship Specialty Start Date End Date Marilou Judd FNP PCP - General Family Medicine 09/11/21 08/29/23 Nathalia Proctor NP [address] [place] [address] PCP - General Family Medicine 08/30/23 09/21/23 Reva Castillo DO [address] [place] [address] PCP - General Family Medicine 09/22/23 documented as of this encounter
--- OUTSIDE RECORDS SUMMARY | 2025-08-03 15:48 | XMS_ITS | Encounter Summary ---
Author Organization [employer] Address [address] [facility] [address]t [place] [address] Care Team Providers Care Stratigraphy Teacher Name Role Phone Reva Castillo DO Primary Care Provider + [phone] Reason for Visit * Reason Comments Med Refill Encounter Details Date Type Department Care Team ([facility] st Contact Info) Description 05/17/2025 Refill [facility] MEDICINE [address] [place] [address] Reva Castillo DO [address] [place], [place] [phone] Social History Tobacco Use Types Packs/Day Years [...] documented as of this encounter Care Teams Stratigraphy Teacher Relationship Specialty Start Date End Date Reva Castillo DO [address] [place] [address] PCP - General Family Medicine 09/22/23 documented as of this encounter
--- OUTSIDE RECORDS SUMMARY | 2025-08-03 15:48 | XMS_ITS | Clinical Summary ---
Author Organization [employer] Address [address] [place] [address] Care Team Providers Care Play Writer Name Role Phone Reva Castillo Primary Care Provider + [phone] Allergies Active Allergy Reactions Criticality Noted Date [...] needed for allergies. 30 tablet 4 Active hydrOXYzine pamoate (Vistaril) 25 MG capsule TAKE 1 TO 2 CAPSULES BY MOUTH EVERY 6 HOURS NEEDED ANXIETY 60 capsule 1 4 Active cholecalciferol (Vitamin D-3) 25 MCG (1000 UT) tablet Take 1 tablet (25 mcg) by mouth Once per day. 90 tablet 3 4 Active gabapentin (Neurontin) 100 MG capsule Take 1 capsule (100 mg) by mouth at bedtime. 30 capsule 3 4 09/14/20 25 Active baclofen (Lioresal) 10 MG tablet Take 1 tablet (10 mg) by mouth if needed in the morning, at noon, and at bedtime for muscle spasms. 60 tablet 3 4 09/14/20 25 Active acetaminophen (Tylenol 8 Hour) 650 MG ER tabletIndicatio ns:COVID-19 Take 1 tablet (650 mg) by mouth every 8 (eight) hours if needed for mild pain. 60 tablet 1 5 05/13/20 26 Active lidocaine (Lidoderm) 5 % patch Apply 1-2 patches topically if needed each day for mild pain. Remove & discard patch within 12 hours or as directed by MD. 60 patch 3 5 Active Diclofenac Sodium 1 % gel Apply 2 g topically if needed in the morning, at noon, in the evening, and at bedtime (pain). 150 g 3 5 Active naproxen (Naprosyn) 500 MG tablet Take 1 tablet (500 mg) by mouth if needed in the morning and at bedtime for mild pain. 40 tablet 1 5 05/13/20 26 Active methocarbamol (Robaxin) 500 MG tablet Take 1 tablet (500 mg) by mouth every 8 (eight) hours if needed for muscle spasms. 60 tablet 1 5 05/13/20 26 Active loratadine (Claritin) 10 MG tabletIndicatio ns:Acute non-recurrent frontal sinusitis,Seaso nal allergic rhinitis due to other allergic trigger Take 1 tablet (10 mg) by mouth Once per day. 30 tablet 11 5 05/20/20 26 Active Active Problems Problem Noted Date Diagnosed Date Viral upper respiratory tract infection 05/20/20 25 Acute non-recurrent frontal sinusitis 05/20/2025 Assessment & Plan (06/07/2025 12:25 PM EDT): Consistent with infection , rx for augmentin Continue with allergy management. Return to clinic for worsening symptoms or failure to improve Lumbar sprain 01/31/2025 Pelvic congestion syndrome 09/14/2024 [...] Encounters Date Type Department Care Team Description 07/02/2025 Telephone [facility] [address] [place] [address] Reva Castillo, Medication Question 06/19/2025 Orders Only [facility] [address] [place] [phone] Reva Castillo DO Abnormal MRI, lumbar spine (Primary Dx) 06/14/2025 Telephone [facility] [address] [place] [address] Reva Castillo, Results 05/22/2025 Telephone [facility] [address] [place] [address] Reva Castillo DO Medication Question 05/20/2025 4:00 PM EDT Office Visit [facility] [address] [place] [address] Jessica Tabares, FARM MANAGEMENT AGENT Viral upper respiratory tract infection (Primary Dx); Acute non-recurrent frontal sinusitis; Seasonal allergic rhinitis due to other allergic trigger 05/20/2025 Refill [facility] [address] [place] [phone] Reva Castillo DO Acute non-recurrent frontal sinusitis; Seasonal allergic rhinitis due to other allergic trigger 05/20/2025 Travel 05/20/[address] [address] Reva Castillo DO Nurse Triage 05/17/[address] [address] Reva Castillo DO 05/13/2025 11:45 AM EDT Office Visit [address] [address] Reva Castillo DO Bilateral leg pain (Primary Dx); Acute bilateral knee pain; COVID-19 05/13/2025 Travel 05/08/[address] [address] Reva Castillo DO Chart Prep 05/08/[address] [address] Reva Castillo DO Nurse Triage from Last 3 Months Immunizations Immunization Administration Dates Next Due DTP 1990,1990,1990 DTaP [...] Sign Reading Time Taken Comments Blood Pressure 124/80 05/20/2025 4:07 PM EDT Pulse 83 05/20/2025 4:07 PM EDT Temperature 36.1 C (97 F) 05/20/2025 4:07 PM EDT Respiratory Rate 14 05/20/2025 4:07 PM EDT Oxygen Saturation 97% 05/20/2025 4:07 PM EDT Inhaled Oxygen Concentration - - Weight 69.5 kg (153 lb 3.2 oz) 05/20/2025 4:07 P M EDT Height 157.5 cm (5' 2 ) 05/20/2025 4:07 PM EDT Body Mass Index 28.02 05/20/2025 4:07 PM EDT Plan of Treatment Health Maintenance Due Date Last Done Comments Family Planning (PISQ) 2005 COVID-19 Vaccine ( season) 2025 08/24/2022, 08/03/2022 Influenza Vaccine (#1) 2025 , 08/31/2020, 09/11/2018, Additional history exists Depression Screening 12/26/2025 12/26/2024, 12/26/19 25 SDOH Screening 12/26/2025 12/26/2024 Disability Screening 05/13/2026 05/13/2025 Alcohol/Substance Use Screening 05/20/2026 05/20/2025 Tobacco Screening 05/20/2026 05/20/2025 Cervical Cancer Screening 05/28/2028 HPV/Cotest 05/28/2028 05/28/2023, [...] patient's age to complete this topic Meningococcal B Vaccine Aged Out No l onger eligible based on patient's age to complete this topic Meningococcal Vaccine Aged Out No karina steve eligible based on patient's age to complete this topic Pneumococcal Vaccine: Pediatrics (0 to 5 Years) and At-Risk Patients (6 to 49) Years Aged Out No longer eligible based on patient's age to complete this topic RSV under 20 months Aged Out No longe r eligible based on patient's age to complete this topic Rotavirus Vaccines Aged Out No longer eligible based on patient's age to complete this topic Procedures Procedure Name Priority Date/Time Associated Diagnosis Comments MR LUMBAR SPINE W AND WO CONTRAST Routine 07/11/2025 3:19 PM EDT MR LUMBAR SPINE WO CONTRAST Routine 05/29/2025 3:31 PM EDT Bilateral leg pain XR KNEE 4+ VIEWS BILATERAL Routine 05/13/2025 3:35 PM EDT HEPATITIS C AB W/REFL TO HCV RNA, QN, PCR Routine 02/16/2024 12:01 PM EDT Thrombocytopenia (CMS/HCC) Healthcare maintenance HIV 1/2 ANTIGEN/ANTIBODY, FOURTH GENERATION W/RFL Routine 02/16/2024 12:01 PM EDT Thrombocytopenia (CMS/HCC) Healthcare maintenance HM PAP/HPV Routine 05/28/2023 from Last 3 Months or Most Recently Relevant to Health Maintenance Results * MR Lumbar Spine w/ and w/o Contrast (07/11/2025 3:19 PM EDT) Anatomical Region Laterality Modality Spine, L-spine Magnetic Resonan ce 07/11/2025 3:19 PM EDT Narrative 07/11/2025 6:00 PM EDT [address] [address] Magnetic Resonance Report Signed Patient: Adriana Golden MR#: [id number] : 1990 Acct:[id number] Age/Sex: 35 / F ADM Date: 07/11/25 Loc: HO.MRI Attending Dr: Braulio HYATT Ordering Physician: Braulio Nguyen Date of Service: 07/11/25 Procedure(s): MR lumbar spine wo/w con Accession Number(s): [id number] cc: Braulio Nguyen; Reva Castillo DO EXAMINATION: MR LUMBAR SPINE WITHOUT AND WITH CONTRAST CLINICAL INFORMATION: eval for possible schwannoma at L2 COMPARISON: Lumbar spine MRI on May 29, 2005 TECHNIQUE: MRI of the lumbar spine was obtained using routine sequences before and after intravenous administration of 7 cc of contrast gadolinium Gadavist. FINDINGS: Vertebral label follows the same as on the previous examination. Alignment and vertebrae: No malalignment. No compression fracture. Bone marrow: No bone marrow edema. No bone marrow replacing lesion. Intervertebral discs: Disc desiccation change without significant loss of height of L4-L5 and L5-S1 discs. Conus: Terminates at L1-2 level. No abnormal signal of the included conus. There is a 0.7 x 0.6 x 0.5 cm enhancing nodule in the cauda equina at the level of L3 vertebral body (14:9, 13:24). Soft tissues: Posterior paraspinal soft tissues are unremarkable. Other findings: No suspicious findings in the included retroperitoneum. Findings by level: T11-T12: No disc herniation. No spinal canal or neuroforaminal stenosis. T12-L1: No disc herniation. No spinal canal and neuroforaminal stenosis. L1-L2: No disc herniation. No spinal canal or neuroforaminal stenosis. L2-L3: No disc herniation. No spinal canal or neuroforaminal stenosis. L3-L4: Minimal bulging disc. No spinal canal and neuroforamina stenosis. L4-L5: Bulging disc and superimposed central disc protrusion contributes to decreased AP diameter of the thecal sac. No neural foraminal stenosis. L5-S1: Minimal bulging disc with superimposed right foraminal disc protrusion that contributes to mild right neuroforaminal stenosis. No spinal canal or left neuroforaminal stenosis. MR/MR lumbar spine wo/w con IMPRESSION: 1. Enhancing nodule in the cauda equina, at the level of L3 vertebral body, measuring 0.7 x 0.6 x 0.5 cm. Differential considerations would include myxopapillary ependymoma and schwannomas. 2. Mild degenerative changes in the lower lumbar spine, more pronounced at L4-L5. Electronically signed by: Jori Elena MD 07/11/2025 05:56 PM EDT Dictated By: Jori Elena MD Signed By: <Electronically signed by Jori Elena MD in OV> 07/11/25 1756 DD/ 1519 TD/TT: 07/11/25 1659 Liquor Maker: Procedure Note Donotuseinterpreter, Image - 07/11/[address] [address] Magnetic Resonance Report Signed Patient: Ace Golden#: [id number] : 1990Acct:[id number] Age/Sex: 35 / FADM Date: 07/11/25 Loc: HO.MRI Attending Dr: Braulio HYATT Ordering Physician: Braulio Nguyen Date of Service: 07/11/25 Procedure(s): MR lumbar spine wo/w con Accession Number(s): [id number] cc: Braulio Nguyen; Reva Castillo DO EXAMINATION: MR LUMBAR SPINE WITHOUT AND WITH CONTRAST CLINICAL INFORMATION: eval for possible schwannoma at L2 COMPARISON: Lumbar spine MRI on May 29, 2005 TECHNIQUE: MRI of the lumbar spine was obtained using routine sequences before and after intravenous administration of 7 cc of contrast gadolinium Gadavist. FINDINGS: Vertebral label follows the same as on the previous examination. Alignment and vertebrae: No malalignment. No compression fracture. Bone marrow: No bone marrow edema. No bone marrow replacing lesion. Intervertebral discs: Disc desiccation change without significant loss of height of L4-L5 and L5-S1 discs. Conus: Terminates at L1-2 level. No abnormal signal of the included conus. There is a 0.7 x 0.6 x 0.5 cm enhancing nodule in the cauda equina at the level of L3 vertebral body (14:9, 13:24). Soft tissues: Posterior paraspinal soft tissues are unremarkable. Other findings: No suspicious findings in the included retroperitoneum. Findings by level: T11-T12: No disc herniation. No spinal canal or neuroforaminal stenosis. T12-L1: No disc herniation. No spinal canal and neuroforaminal stenosis. L1-L2: No disc herniation. No spinal canal or neuroforaminal stenosis. L2-L3: No disc herniation. No spinal canal or neuroforaminal stenosis. L3-L4: Minimal bulging disc. No spinal canal and neuroforamina stenosis. L4-L5: Bulging disc and superimposed central disc protrusion contributes to decreased AP diameter of the thecal sac. No neural foraminal stenosis. L5-S1: Minimal bulging disc with superimposed right foraminal disc protrusion that contributes to mild right neuroforaminal stenosis. No spinal canal or left neuroforaminal stenosis. MR/MR lumbar spine wo/w con IMPRESSION: 1. Enhancing nodule in the cauda equina, at the level of L3 vertebral body, measuring 0.7 x 0.6 x 0.5 cm. Differential considerations would include myxopapillary ependymoma and schwannomas. 2. Mild degenerative changes in the lower lumbar spine, more pronounced at L4-L5. Electronically signed by: Jori Elena MD 07/11/2025 05:56 PM EDT Dictated By: Jori Elena MD Signed By: <Electronically signed by Jori Elena MD in OV> 07/11/25 1756 DD/ 1519 TD/TT: 07/11/25 1659 Liquor Maker: [facility] External Provider IMG MRI PROCEDURES Final Result * MR Lumbar Spine w/o Contrast (05/29/2025 3:31 PM EDT) Anatomical Region Laterality Modality Spine, L-spine Magnetic Resonan ce 05/29/2025 3:31 PM EDT Narrative 05/30/2025 7:47 AM EDT [address] [address] Magnetic Resonance Report Signed Patient: Adriana Golden MR#: [id number] : 1990 Acct:[id number] Age/Sex: 35 / F ADM Date: 05/29/25 Loc: HO.MRI Attending Dr: Reva Castillo DO Ordering Physician: Reva Castillo DO Date of Service: 05/29/25 Procedure(s): MR lumbar spine wo con Accession Number(s): [id number] cc: Reva Castillo DO EXAMINATION: MR LUMBAR SPINE WITHOUT CONTRAST CLINICAL INFORMATION: Low back pain radiating to lower extremities. No injuries. COMPARISON: Correlated to x-ray dated January 12, 2025. TECHNIQUE: MRI of the lumbar spine was obtained using routine sequences without contrast. FINDINGS: Last rib-bearing vertebra labeled T12. No bone marrow STIR signal abnormality. Disc desiccation L4-5 and L5-S1. Focal hyperintense T2 STIR signal in the posterior aspect of the intervertebral disc L4-5 likely focal annular fissure. There is normal alignment. Conus medullaris and at pedicle of L1 with normal signal. Decreased bone marrow signal on T1 and T2. T11-12: No disc herniation. No neuroforamina stenosis. T12-L1: No disc herniation. No neuroforamina stenosis. L1-2: No disc herniation. No neuroforamina stenosis. L2-3: No disc herniation. No neuroforamina stenosis. L3-4: Broad-based disc bulging. Facet joint hypertrophy. No compression upon neural elements. L4-5: Central disc herniation resulting in ventral deformity of the thecal sac and abutting the L5 nerve roots on the lateral recesses. Facet joint and ligamentum flavum hypertrophy. Reduced AP diameter of the thecal sac. No gross neuroforamina stenosis. L5-S1: Broad-based disc bulging. Facet joint hypertrophy. Bilateral neuroforamina narrowing encroaching the L5 exiting nerve roots. No prevertebral compartment hematoma, mass or fluid collection. MR/MR lumbar spine wo con IMPRESSION: Central herniated disc at L4-5 abutting the L5 nerve roots on the lateral recesses. Spondylosis at L4-5 and L5-S1 resulting in central spinal canal stenosis at L4-5 and bilateral neuroforamina stenosis at L5-S1. A lymphoproliferative disorder among other etiologies cannot be excluded. Electronically signed by: Francisco Javier Zarate MD 05/30/2025 07:44 AM EDT Dictated By: Francisco Javier Vizcaino MD Signed By: <Electronically signed by Francisco Javier Browning MD in OV> 05/30/25 0744 DD/ 1531 TD/TT: 05/29/25 1651 Liquor Maker: Procedure Note Donotuseinterpreter, Image - 05/30/2025 [place] [address] Magnetic Resonance Report Signed Patient: Ace Golden#: [id number] : 1990Acct:[id number] Age/Sex: 35 / FADM Date: 05/29/25 Loc: HO.MRI Attending Dr: Reva Castillo DO Ordering Physician: Reva Castillo DO Date of Service: 05/29/25 Procedure(s): MR lumbar spine wo con Accession Number(s): [id number] cc: Reva Castillo DO EXAMINATION: MR LUMBAR SPINE WITHOUT CONTRAST CLINICAL INFORMATION: Low back pain radiating to lower extremities. No injuries. COMPARISON: Correlated to x-ray dated January 12, 2025. TECHNIQUE: MRI of the lumbar spine was obtained using routine sequences without contrast. FINDINGS: Last rib-bearing vertebra labeled T12. No bone marrow STIR signal abnormality. Disc desiccation L4-5 and L5-S1. Focal hyperintense T2 STIR signal in the posterior aspect of the intervertebral disc L4-5 likely focal annular fissure. There is normal alignment. Conus medullaris and at pedicle of L1 with normal signal. Decreased bone marrow signal on T1 and T2. T11-12: No disc herniation. No neuroforamina stenosis. T12-L1: No disc herniation. No neuroforamina stenosis. L1-2: No disc herniation. No neuroforamina stenosis. L2-3: No disc herniation. No neuroforamina stenosis. L3-4: Broad-based disc bulging. Facet joint hypertrophy. No compression upon neural elements. L4-5: Central disc herniation resulting in ventral deformity of the thecal sac and abutting the L5 nerve roots on the lateral recesses. Facet joint and ligamentum flavum hypertrophy. Reduced AP diameter of the thecal sac. No gross neuroforamina stenosis. L5-S1: Broad-based disc bulging. Facet joint hypertrophy. Bilateral neuroforamina narrowing encroaching the L5 exiting nerve roots. No prevertebral compartment hematoma, mass or fluid collection. MR/MR lumbar spine wo con IMPRESSION: Central herniated disc at L4-5 abutting the L5 nerve roots on the lateral recesses. Spondylosis at L4-5 and L5-S1 resulting in central spinal canal stenosis at L4-5 and bilateral neuroforamina stenosis at L5-S1. A lymphoproliferative disorder among other etiologies cannot be excluded. Electronically signed by: Francisco Javier Zarate MD 05/30/2025 07:44 AM EDT Dictated By: Francisco Javier Vizcaino MD Signed By: <Electronically signed by Francisco Javier Browning MDin OV> 05/30/25 0744 DD/ 1531 TD/TT: 05/29/25 1651 Liquor Maker: us Reva Castillo DO G MRI PROCEDURES Edited Re sult - Final * XR Knee 4+ Views Bilateral (05/13/2025 3:35 PM EDT) Anatomical Region Laterality Modality Lower Extremities, Knee [facility] 05/13/2025 3:35 PM EDT Narrative 05/13/2025 5:15 PM EDT [address] [address] XRay Report Signed Patient: Adriana Golden MR#: [id number] : 1990 Acct:[id number] Age/Sex: 35 / F ADM Date: 05/13/25 Loc: .HHCX Attending Dr: Reva Castillo DO Ordering Physician: Reva Castillo DO Date of Service: 05/13/25 Procedure(s): XR Knee Candido 4V Accession Number(s): [id number] cc: Reva Castillo DO Exam: 4 view bilateral knees x-ray TECHNIQUE: AP standing, sunrise, AP axial, and lateral views lower extremity joint Indication bilateral knee pain worsening Prior: September 14, 2024 FINDINGS: Right knee: Joint spaces are preserved. There are no osteophytes. There are no erosions. There is no soft tissue calcification. There is no joint effusion. Left knee: Joint spaces are preserved. There are no osteophytes. There are no erosions. There is no soft tissue calcification. There is no joint effusion XR/XR Knee Candido 4V Impression: Unremarkable bilateral knees, no change. Electronically signed by: Toy Yates MD 05/13/2025 05:12 PM EDT Dictated By: Toy Yates MD Signed By: <Electronically signed by Toy Yates MD in OV> 05/13/25 1712 DD/ 1535 TD/TT: 05/13/25 1600 Liquor Maker: Procedure Note Donotuseinterpreter, Image - 05/13/[address] [address] XRay Report Signed Patient: Shana GoldenR#: [id number] : 1990Acct:[id number] Age/Sex: 35 / FADM Date: 05/13/25 Loc: HO.HHCX Attending Dr: Reva Castillo DO Ordering Physician: Reva Castillo DO Date of Service: 05/13/25 Procedure(s): XR Knee Candido 4V Accession Number(s): [id number] cc: Reva Castillo DO Exam: 4 view bilateral knees x-ray TECHNIQUE: AP standing, sunrise, AP axial, and lateral views lower extremity joint Indication bilateral knee pain worsening Prior: September 14, 2024 FINDINGS: Right knee: Joint spaces are preserved. There are no osteophytes. There are no erosions. There is no soft tissue calcification. There is no joint effusion. Left knee: Joint spaces are preserved. There are no osteophytes. There are no erosions. There is no soft tissue calcification. There is no joint effusion XR/XR Knee Candido 4V Impression: Unremarkable bilateral knees, no change. Electronically signed by: Toy Yates MD 05/13/2025 05:12 PM EDT Dictated By: Toy Yates MD Signed By: <Electronically signed by Toy Yates MD in OV> 05/13/25 1712 DD/ 1535 TD/TT: 05/13/25 1600 Liquor Maker: Reva Castillo DO IMG XR PROCEDURES Final Resu lt * Hepatitis C Antibody with Reflex to HCV, RNA, Quantitative, Real-Time PCR (02/16/2024 12:01 PM EDT) Hepatitis C Antibody Nonreactive Nonreactive [facility] Comment:Antibodies to HCV no t detected; does not exclude early acuteHCV infection. Blood Venous blood specimen / Unknown 02/16/2024 12:01 PM EDT 02/16/2024 1:15 PM EDT Reva Castillo DO LAB BLOOD ORDERABLES Final R esult Performing Organization Address [facility]/ZIP Co de Phone Number [facility] [address] [place] [phone] [phone] * HIV-1/2 Antigen and Antibodies, Fourth Generation, with Reflexes (02/16/2024 12:01 PM EDT) HIV AB/AG Nonreactive Nonreactive [facility] Comment:HIV-1 p24 Ag and/or HIV-1/HIV-2 Ab not detected.A test result that is nonreactive does not exclude thepossibility of exposure to or infection with HIV-1 and/orHIV-2. Nonreactive results in this assay for individualswith prior exposure to HIV-1 and/or HIV-2 may be due toantigen and antibody levels that are below the limit ofdetection of this assay.The [employer] HIV Ag/Ab Combo assay result andsupplemental assay results should be interpreted inconjunction with the patient's clinical presentation,history and other laboratory results. If the results areinconsistent with clinical evidence, additional testing issuggested to confirm the result. Blood Venous blood specimen / Unknown 02/16/2024 12:01 PM EDT 02/16/2024 1:15 PM EDT Reva Castillo DO LAB BLOOD ORDERABLES Final [facility] Performing Organization Address [facility] Co de Phone Number [facility] [address] [place] [phone] [phone] * HM PAP/HPV (05/28/2023) Pap Smear 1. NILM 1. NILM HPV Not Detected Undetected, Indeterminat e, Quantitative , Not Detected Historical Provider HEALTH MAINTENANCE Final Result from Last 3 Months or Most Recently Relevant to Health Maintenance Insurance [facility] C3 Care Teams Play Writer Relationship Specialty Start Date End Date Reva Castillo DO [address] [place] [phone] PCP - General Family Medicine 09/22/23
== END 2025-08-03 15:41 | disposition home or self-care (01) ==
LOC: HO.MRI 15:40
PROVIDERS: PCP Family Medicine; Visit Provider Physician Assistant
DX: M89.8X8 Other specified disorders of bone, other site (principal)
CPT/HCPCS: 72156; 72157; A9585

== ENCOUNTER → 2025-08-03 15:53 | Outpatient (BNV) | payer MEDICAID, SELFPAY | PROVIDERS: PCP Family Medicine; Visit Provider Radiology Diagnostic Radiology | DX: M47.812 Spondylosis without myelopathy or radiculopathy, cervical region (principal); M89.8X8 Other specified disorders of bone, other site | CPT/HCPCS: 72156; 72157 ==